=== PATIENT | female | born 1970 | race Caucasian/White ===

== ENCOUNTER 2016-05-06 06:18 | Day surgery (SDC) | payer OTHER ==
[2016-04-28 16:07] VITALS: BMI 21.7
[2016-05-06 06:33] VITALS: RESP 16; TEMP 98.1
[2016-05-06] MEDS ORDERED: LIDOCAINE 1% 20 ML VIAL (10MG/ML) FOR IV START SQ ONE (06:44)
[2016-05-06] MEDS ORDERED: LACTATED RINGERS 1,000 ML IV ONE (06:44)
[2016-05-06] MEDS ORDERED: MIDAZOLAM 2 MG/2 ML VIAL ONE (07:25)
[2016-05-06] MEDS ORDERED: BUPIVACAINE (PF) 0.5% 30 ML VIAL ONE (07:25)
[2016-05-06] MEDS ORDERED: fentaNYL (PF) 50 MCG/ML 2 ML AMP ONE (07:25)
[2016-05-06] MEDS ORDERED: TRIAMCINOLONE ACETONIDE 40 MG/ML 1 ML VIAL ONE (07:25)
[2016-05-06] MEDS ORDERED: LACTATED RINGERS 1,000 ML IV SCH (07:45)
[2016-05-06] MEDS ORDERED: IV FLUID CONTINUATION 1,000 ML IV ONE (07:51)
[2016-05-06 07:56] VITALS: PULSE 63
--- NOTE | 2016-05-06 08:06 | FL ---
EXAMINATION TYPE: FL guided pain mgmt statistic DATE OF EXAM: 05/06/2016 7:53 AM HISTORY: Pain 8 sec fl time used during lumbar facets 5 images scanned into pacs doctor mata
[2016-05-06 08:11] VITALS: BP 113/72
--- NOTE | 2016-05-06 08:49 | P.PCN ---
Date of Procedure: 05/06/16 Anesthesia: MAC Surgeon: Adam Armstrong Pathology: none sent Condition: stable Disposition: PACU Description of Procedure: PREOPERATIVE DIAGNOSIS: L3-L4, L4-L5, and L5-S1 spondylosis without myelopathy and facet arthropathy. POSTOPERATIVE DIAGNOSIS: L3-L4, L4-L5, and L5-S1 spondylosis without myelopathy and facet arthropathy. PROCEDURE DESCRIPTION: Patient presents for bilateral L3, L4 and L5 diagnostic medial branch blocks under fluoroscopic guidance. The procedure is performed using fluoroscopic guidance during needle placement to assure proper position and maximize safety. ANESTHESIA: Local with 1% lidocaine. Conscious sedation with Versed/fentanyl. EBL: Minimal PROCEDURE INDICATION: Patient with lumbar facet arthropathy signs and symptoms, here for diagnostic medial branch block #2 after 70% relief for 3-4 hours from MBB #1. Pt does not take any blood thinning medications. PROCEDURE DESCRIPTION: The patient was seen and identified in the preoperative area. Risks, benefits, complications, and alternatives were discussed with the patient (including but not limited to incomplete pain relief, bleeding, infection, nerve damage, and allergies to medications), the patient agreed to proceed with the procedure and signed the consent after all questions were answered. Patient was taken to the OR and time out was completed to verify proper patient, position, laterality of pain, and allergies. Pt was placed in the prone position and a pillow was placed under the abdomen to reduce lumbar lordosis. The lumbosacral area was prepped and draped in the usual sterile fashion. Using oblique fluoroscopy, the eye of the "Jimi dog" of right L4 vertebral body, which corresponds to the path of the medial branch originating from the level above, which is L3 in this case, was identified. Subsequently, a 22-gauge 3.5-inch spinal needle was inserted under fluoroscopic guidance toward the eye of the "Jimi dog" of the right L4 vertebral body, corresponding to the junction of the superior articular process and the transverse process of the pedicle of the same level. After needle tip confirmation on lateral view and after negative aspiration for CSF and blood and without paresthesias, 1 mL of a 6 ml solution of 0.5% preservative-free bupivacaine and 40 mg Kenalog was injected. Subsequently the needle was withdrawn intact and the same procedure was repeated for the right L4, right L5, left L3, left L4, and left L5 medial branches which together with right L3 medial branch correspond to the sensory innervation of the bilateral L3-L4, L4-L5, and L5-S1 facet joints. Needle was withdrawn intact after each injection. At the end of the procedure, the skin was cleansed and bandages were applied. COMPLICATIONS: None. DISPOSITION/PLAN: The patient taken to the recovery area after the procedure in a stable condition for observation. Patient was reexamined prior to discharge and there were no issues. Patient was discharged home, accompanied by an adult, after meeting discharged criteria. Discharge instructions were give to the patient by the staff. Patient was specifically instructed not to drive today and to rest for the rest of the day.
== END 2016-05-06 08:30 | disposition home or self-care (01) ==
LOC: ORPAIN 06:18
PROVIDERS: ATTEND Anesthesiology
DX: M46.86 Other specified inflammatory spondylopathies, lumbar region (principal); M47.817 Spondylosis without myelopathy or radiculopathy, lumbosacral region; M47.816 Spondylosis without myelopathy or radiculopathy, lumbar region; I10 Essential (primary) hypertension; F32.9 Major depressive disorder, single episode, unspecified; K21.9 Gastro-esophageal reflux disease without esophagitis; Z88.6 Allergy status to analgesic agent; Z88.5 Allergy status to narcotic agent; Z88.8 Allergy status to other drugs, medicaments and biological substances; Z79.899 Other long term (current) drug therapy
CPT/HCPCS: 64493; 64494; 64495; J2250; J3301; J3010

== ENCOUNTER → 2016-06-21 | Outpatient (CLI) | payer OTHER ==
[2016-06-21 14:53] VITALS: BP 111/59; PULSE 65; RESP 16; TEMP 98.3
--- NOTE | 2016-06-21 15:45 | P.PN ---
Subjective This is follow-up visit for this patient with a history of severe and chronic neck pain ,and low back pain secondary to lumbar degenerative disc disease lumbar facet arthropathy, and cervical spinal stenosis, cervical spondylosis we have done interventional pain management injection, diagnostic medial branch blocks lumbar area x2 and she had no benefit from the diagnostic medial branch block, for this reason we will not proceed with the radiofrequency ablation of the medial branch lumbar area, currently she is reporting that she is complaining of severe neck pain with radiation to the upper extremity, associated with numbness and tingling sensation, and occasional weakness in her upper extremities bilaterally, and she is complaining of generalized neck pain, and is currently on pain medication 1- Lyrica 50 mg every morning and 50 mg daily , pm and 100 mg every at bedtime 2- Ultram 50 MG EVERY 8 HOURS 3-Motrin 600 mg every 8 hours , Patient denies any side effects of the medication, denies excessive drowsiness or sleepiness, denies suicidal ideation, he denies any change in the bowel movement or urination, no fever or night sweats ,and reports that the current pain medication is NOT helping To control the pain and improve activity of daily living Physical Examinations : 1-Constitutiona : Cooperative , not in acute distress . 2-HEENT : nech ; supple , no Lymphadenopathy , no Thyromegaly , normal thyroid size . eyes : no ptosis , no icterus, no photophobia . ENT : normal of hearing , normal oropharynx , no Thrush . 3- Respiratory : Chest clear to auscultations Bilaterally , no wheezing , no Rhonchi . 4- Cardiovascular : regular rate and rhythem , S1 , S2 , no S3 , no S4. 5- Gastrointestinal : abdomen soft no tenderness , bowel sounds positive all four quadrents , no organomegally . 6- Genitourinary : Defferred . 7- neurologic : Cranial nerve II to XII intact , no focal neurological deffecit . 8-psychatric : alert , oriented X 3 , appropriate affect , intact judgment and insight . 9-Lymphatic : no Lymphadenopathy . 10- musculoskeltal : exams of the cervical spine = motor strength normal bilateral upper extremities facet loading test cervical area positive. Multiple trigger point identified in the cervical paravertebral muscles exams of the Lumber spine = motor strength lower extremities ,thigh and legs .5/5 deep tendon reflexes : normal Knee Jerk , normal ankle Jerk . lumber facet Loading Test positive strait leg raising test positive at 30 degree , RT ,LT , Fabere test positive RT and positive LT . Range of motion: Range of motion in flexion of the lumbar spine 30 degrees Range of motion range of motion of extension of the lumbar spine 10 Sever tenderness over the Sacroiliac joint on the Right , and Left side Severe tenderness over the right trochanteric bursa Diagnostic study= MRI of the lumbar spine with moderate facet hypertrophy L4 5/L5-S1 MRI of the cervical spine C4 5 , C5 6 moderate canal stenosis And multilevel degenerative disc disease and facet hypertrophy in the cervical spine Assessment and plan = - Chronic low back pain secondary to lumbar degenerative disc disease , lumbar spondylosis with facet arthropathy without myelopathy , Cervical radiculopathy, cervical spinal stenosis, cervical spondylosis Fibromyalgia , - diagnoses, prognosis, and treatment options including but not limited to physical therapy, surgical interventions, interventional therapies , and medication management including narcotics and adjuvant medication were discussed with the patient and all The questions answered. The patient had diagnostic medial branch block lumbar area and it was negative for any improvement in her low back pain for this reason she is not a Good candidate to have the radiofrequency of the medial branch lumbar area. Patient could benefit from cervical epidural steroid injection, which will be done under fluoroscopy guidance at the earliest convenient for the patient, And the patient could benefit from trigger point injection which can be done at the same time and with a cervical epidural steroid injection. Also patient will benefit from increasing the Lyrica to 100 mg 3 times a day, and will start patient on baclofen 10 mg twice a day, Discontinue Motrin , and start patient on Mobic 7.5 mg daily And the patient continued to have pain after the injection and will consider referring her to spine surgeon for evaluation for possible surgical intervention Objective - Vital Signs Vital signs: Vital Signs Temp 98.3 F 06/21/16 14:48 Pulse 65 06/21/16 14:48 Resp 16 06/21/16 14:48 BP 111/59 06/21/16 14:48 Pulse Ox 100 06/21/16 14:48 Intake & Output 06/20/16 06/21/16 06/21/16 18:59 06:59 18:59 Weight 60.328 kg
== END | disposition home or self-care (01) ==
LOC: PNWHC3 14:36
PROVIDERS: ATTEND Specialist
DX: M51.36 Other intervertebral disc degeneration, lumbar region (principal); M47.816 Spondylosis without myelopathy or radiculopathy, lumbar region; M46.96 Unspecified inflammatory spondylopathy, lumbar region; M48.02 Spinal stenosis, cervical region; Z79.899 Other long term (current) drug therapy; M54.12 Radiculopathy, cervical region; M47.892 Other spondylosis, cervical region; M79.7 Fibromyalgia
CPT/HCPCS: 99211

== ENCOUNTER → 2016-08-16 | Outpatient (CLI) | payer OTHER ==
[2016-08-16 14:22] VITALS: BP 110/71; PULSE 65; RESP 16; TEMP 98.5
--- NOTE | 2016-08-16 14:45 | P.PN ---
Progress Note - Text Patient returns for followup for chronic neck and low back pain with radiation to upper extremities. Patient recently underwent cervical epidural steroid injection and cervical TPI, during which she had seizure like activity and was nearly intubated. Patient was sent to [facility] for possible neurosurgical intervention, but this was not done and patient was discharged home after rehab. Patient now returns to our clinic for follow-up, and has been taken off Lyrica by her neurologist and has not had tramadol for some time , and is now taking Cymbalta 30 mg daily. She is currently taking baclofen which helps with her pain somewhat. Patient denies adverse drug effects from medications. Today, pt denies new-onset weakness, bowel/bladder incontinence, or any other signs or symptoms of cauda equina syndrome. There are no signs of acute intoxication, and no indications of medication diversion or overuse. In addition to above, 13-point review of systems is also negative for chest pain , shortness of breath, changes in vision, changes in hearing, new onset weakness , abdominal pain, diarrhea, extreme fatigue, malaise, fever, skin changes, homicidal or suicidal ideation, or bowel or bladder incontinence. Vital Signs: Reviewed in EMR Gen: WDWN, AAOx3, NAD HEENT: NCAT, EOMI, hearing grossly normal Pulm: resp unlabored Abd: soft, NT, ND Neck: supple, trachea midline; TTP right cervical paravertebral area Upper extremity: decreased manager project strength RUE 4/5 as opposed to LUE 5/5 Lower extremity: decreased strength RLE 4/5 dorsiflexion/plantarflexion as opposed to LLE 5/5 dorsi/plantarflexion Neuro: CN II-XII grossly intact, patellar reflex 1+ RLE, 2+ LLE Imaging: Reviewed in EMR Assessment: 1. cervical radiculopathy s/p CHRISTINA + TPI with possible seizure-like activity and weakness 2. fibromyalgia 3. chronic pain syndrome Plan: 1. Explanation: Opioid and psychological risk scores were reviewed. Diagnoses , prognoses, and multiple treatment options including but not limited to physical therapy, interventional therapies, adjuvant medical therapies, narcotic medication therapies, and surgery were discussed with the patient and all questions were answered to the patient's satisfaction. 2. Opioid agreement: Patient has previously signed narcotic agreement, and was orally counseled to not overuse, abuse, divert, or cell medications, and to take them as prescribed by only 1 healthcare provider. The patient was also counseled to store opioid medications in a safe and preferably locked location. Patient was also counseled against driving or operating heavy equipment while using narcotic medications and also to not use alcohol or any illicit or recreational drugs. The patient verbalized understanding that lack of compliance with any of the above and likely result in failure to renew narcotic prescriptions, possible discharge from the clinic, and possible legal ramifications thereafter if indicated. 3. Counseling: The patient was counseled extensively on SMOKING CESSATION, BODY MASS INDEX, EXERCISE. Specifically, the patient was instructed regarding the importance of smoking cessation, obesity, and exercise in the context of both chronic pain and overall health. 4. Procedures: none 5. Consultations: None 6. Investigations: None 7. Medications: Percocet 5/325 #15 with no refills (patient hesitant about taking opioids, will only try small dose for one month); refill baclofen 10 TID #90 with two refills 8. Disposition: f/u for re-eval in 4 weeks; as patient is not a candidate for further injections and told not to do physical therapy, I advised her to try yoga and acupuncture; she will research these modalities further. PQRS measures: 1-Patient's medications are documented in the chart. 2-Tobacco use is negative 3-Patient has not had a pneumococcal vaccine. 4-Advanced care planning discussed, patient unable to give. 5-Opioid contract signed with the patient. 6-Pain positive, follow-up visit or procedure scheduled 7-Patient's blood pressure measured and documented, and patient will follow up with the primary care due to hypertension. 8-Patient's weight was measured, and body mass index WNL. 9-Patient WAS NOT identified as an unhealthy alcohol user.
== END | disposition home or self-care (01) ==
LOC: PNWHC3 14:00
PROVIDERS: ATTEND Anesthesiology
DX: M54.12 Radiculopathy, cervical region (principal); M79.7 Fibromyalgia; G89.4 Chronic pain syndrome; Z79.52 Long term (current) use of systemic steroids
CPT/HCPCS: 99211

== ENCOUNTER → 2016-09-13 | Outpatient (CLI) | payer OTHER ==
[2016-09-13 12:18] VITALS: BP 115/70; PULSE 57; RESP 16; TEMP 98.2
--- NOTE | 2016-09-14 15:19 | P.CONS ---
History of Present Illness - Reason for Consult Consult date: 09/13/16 - History of Present Illness This is follow visit for this 46 years old female with a chronic history of severe neck pain, and severe low back pain, diagnosed with cervical spinal stenosis cervical degenerative disc disease, fibromyalgia, and severe low back pain secondary to lumbar spondylosis and lumbar degenerative disc disease, she had seizure-like activity, after the procedure done 07/22/2016 (Trigger points injection cervical area ,and cervical epidural steroid injection), patient currently taking baclofen 10 mg 3 times a day, and Aleve 220 twice a day, Cymbalta 30 mg twice a day, and she stopped taking Percocet , as she is concerned about addiction, and she stopped taking tramadol as per recommendation of her neurologist because of possible seizure,, patient continues to have severe neck pain and headache, denies any side effect of the medication , she denies any excessive drowsiness or sleepiness and she denies any motor or sensory deficit, described intensity of the pain as 6-7/10 increased with any activity to a 9/10, done diagnostic medial branch block lumbar area patient had no benefit from the medial branch block for this reason we did not proceed with the radiofrequency ablation of the medial branch, I have done 1 cervical epidural steroid injection and trigger point injection and after the procedure she had, seizure-like activity for this reason patient concerned about proceeding with any interventional pain management procedure, she is able to ambulate and she uses her upper and lower extremity without difficulty but she has severe pain, she was referred to [facility] and they recommended no surgical interventions, even though the MRI of the cervical spine showed moderate to severe spinal stenosis Past Medical History Past Medical History: Fibromyalgia, Musculoskeletal Disorder Additional Past Medical History / Comment(s): migraines, IBS, past hx irregular heartrate, constipation - uses enemas frequently., states she wakes up at night coughing and choking- 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 History of Any Multi-Drug Resistant Organisms: None Reported Past Surgical History: Bladder Surgery, Hysterectomy Additional Past Surgical History / Comment(s): Cervical pain injections, D&C, loop recorder/later removed, EGD/colonoscopy Past Anesthesia/Blood Transfusion Reactions: Previous Problems w/ Anesthesia, Motion Sickness Additional Past Anesthesia/Blood Transfusion Reaction / Comm: "wake up coughing ", Past Psychological History: Anxiety Additional Psychological History / Comment(s): Pt resides with her boyfriend. She uses no assistive device. She drives. If she is having a "bad" day, her boyfriend helps her out. Smoking Status: Never smoker Past Alcohol Use History: None Reported Past Drug Use History: None Reported - Past Family History Mother Family Medical History: Cancer, Hypertension Additional Family Medical History / Comment(s): Mother has had skin cancer. She possibly has lupus. Father Family Medical History: Hypertension Medications and Allergies Home Medications Medication Instructions Recorded Confirmed Type Acyclovir 400 mg PO BID 09/24/15 09/13/16 History Topiramate [Topamax] 75 mg PO BID 09/24/15 09/13/16 History traMADol HCL [Ultram] 50 mg PO Q6H PRN 01/12/16 09/13/16 History Albuterol Inhaler [Ventolin Hfa 2 puff INHALATION RT-Q6H PRN 02/17/16 09/13/16 History Inhaler] Ondansetron [Zofran ODT] 4 mg PO Q4H PRN 02/17/16 09/13/16 History hydrOXYzine PAMOATE [Vistaril] 25 - 50 mg PO Q12HR PRN 04/29/16 09/13/16 History Cyanocobalamin (Vitamin B-12) 2,500 mcg PO DAILY 06/21/16 09/13/16 History [Vitamin B-12] Rizatriptan Odt [Maxalt ROLLER PRESSER OPERATOR] 10 mg SL BID PRN 06/21/16 09/13/16 History DULoxetine HCL [Cymbalta] 30 mg PO BID 07/20/16 09/13/16 History Ranitidine HCl 300 mg PO DAILY 07/20/16 09/13/16 History Cholecalciferol [Vitamin D3] 1,000 unit PO DAILY 08/16/16 09/13/16 History Ibuprofen [Motrin] 600 mg PO Q8HR PRN 08/16/16 09/13/16 History Naproxen Sodium [Aleve] 220 mg PO DIRECTED PRN 09/13/16 09/13/16 History Allergies Allergy/AdvReac Type Severity Reaction Status Date / Time adhesive tape Allergy burn jane Verified 09/13/16 12:00 on skin hydrocodone bitartrate AdvReac Itching Verified 09/13/16 12:00 [From Vicodin] Physical Exam Physical Examinations : 1-Constitutiona : Cooperative , not in acute distress . 2-HEENT : nech ; supple , no Lymphadenopathy , normal thyroid size . eyes : no ptosis , no icterus, no photophobia . ENT : normal of hearing , normal oropharynx , no Thrush . 3- Respiratory : Chest clear to auscultations Bilaterally , no wheezing , no Rhonchi . 4- Cardiovascular : regular rate and rhythem , S1 , S2 , no S3 , no S4. 5- Gastrointestinal : abdomen soft no tenderness , bowel sounds positive all four quadrents , no organomegally . 6- Genitourinary : Defferred . 7- neurologic : Cranial nerve II to XII intact , no focal neurological deffecit . 8-psychatric : alert , oriented X 3 , appropriate affect , intact judgment and insight . 9-Lymphatic : no Lymphadenopathy . 10- musculoskeltal : cervical spine = motor stregnth in the deltoid and biceps, 5/5 motor stregnth biceps and the wrist extensors 5/5 . motor stregnth in the triceps muscle .5/5 Normal sensation in the upper extremities Positive cervical facet loading test . Lumber spine = normal moter stegnth lower extremities ,thigh and legs .5/5 positive lumber facet Loading Test strait leg raising test positive at 30 degree , RT ,LT , Fabere test positive RT and positive LT . normal sensation in the lower extremities multiple trigger point identified in the cervical paravertebral muscles and lumbar paravertebral muscles , . Results Labs: MRI of the cervical spine done 07/23/2016 revealed moderate to severe spinal stenosis multilevel cervical bulging disc disease at multilevels cervical degenerative disc disease Assessment and Plan Plan: Assessment and plan= severe neck pain and low back pain secondary to cervical spinal stenosis cervical degenerative disc disease and cervical bulging disc disease, and patient had myofascial pain syndrome and cervical area, she had some complication of the trigger point injections, she'll doesn't wish to continue interventional pain management, Low back pain secondary to lumbar spondylosis and lumbar degenerative disc disease Patient concerned about the opiate addiction she doesn't want to take any opioid , and the neurologist recommended to stop tramadol because of possibility of seizure like activity Recommend continue Aleve to 220 mg twice a day, continue Cymbalta 30 mg twice a day, patient could benefit from Topamax 25 mg twice a day which will help to improve her neck pain and also help her headache, description refill for 2 months was given and patient will follow up with the pain clinic in 2 months Time with Patient: Less than 30
== END | disposition home or self-care (01) ==
LOC: PNWHC3 11:33
PROVIDERS: ATTEND Specialist
DX: M48.02 Spinal stenosis, cervical region (principal); M50.20 Other cervical disc displacement, unspecified cervical region; M50.30 Other cervical disc degeneration, unspecified cervical region; M51.36 Other intervertebral disc degeneration, lumbar region; M47.816 Spondylosis without myelopathy or radiculopathy, lumbar region; M79.7 Fibromyalgia; F41.9 Anxiety disorder, unspecified; Z79.899 Other long term (current) drug therapy; Z91.09 Other allergy status, other than to drugs and biological substances; Z88.5 Allergy status to narcotic agent
CPT/HCPCS: 99211

== ENCOUNTER → 2016-11-08 | Outpatient (CLI) | payer OTHER ==
[2016-11-08 12:27] VITALS: BP 112/73; PULSE 50; RESP 16; TEMP 97.8
--- NOTE | 2016-11-08 13:00 | P.PN ---
Progress Note - Text Patient returns for followup for chronic neck and low back pain with radiation to upper extremities. In July, patient recently underwent cervical epidural steroid injection and cervical TPI, during which she had seizure like activity and was nearly intubated. Patient was sent to [facility] for possible neurosurgical intervention, but this was not done and patient was discharged home after rehab. Patient returns for follow-up after Dr. Collins started Topamax at last visit, which was increased by her neurologist at last visit. She is complaining of pain in her neck, arm, and right-sided fingers, the last of which seems to worsen with the weather. Patient notes that she was diagnosed with a smooth muscle disease but was never told what kind, but she was sent to a data center project manager who noted that there was nothing for her that that physician could do. She is currently taking baclofen which helps with her pain somewhat. Patient denies adverse drug effects from medications. Today, pt denies new-onset weakness, bowel/bladder incontinence, or any other signs or symptoms of cauda equina syndrome. There are no signs of acute intoxication, and no indications of medication diversion or overuse. In addition to above, 13-point review of systems is also negative for chest pain , shortness of breath, changes in vision, changes in hearing, new onset weakness , abdominal pain, diarrhea, extreme fatigue, malaise, fever, skin changes, homicidal or suicidal ideation, or bowel or bladder incontinence. Vital Signs: Reviewed in EMR Gen: WDWN, AAOx3, NAD HEENT: NCAT, EOMI, hearing grossly normal Pulm: resp unlabored Abd: soft, NT, ND Neck: supple, trachea midline; TTP right cervical paravertebral area Upper extremity: bilateral UE 5/5 strength Lower extremity: decreased strength RLE 4/5 dorsiflexion/plantarflexion as opposed to LLE 5/5 dorsi/plantarflexion Neuro: CN II-XII grossly intact, patellar reflex 1+ RLE, 2+ LLE Imaging: Reviewed in EMR Assessment: 1. cervical radiculopathy s/p CHRISTINA + TPI with possible seizure-like activity and weakness 2. fibromyalgia 3. chronic pain syndrome Plan: 1. Explanation: Opioid and psychological risk scores were reviewed. Diagnoses , prognoses, and multiple treatment options including but not limited to physical therapy, interventional therapies, adjuvant medical therapies, narcotic medication therapies, and surgery were discussed with the patient and all questions were answered to the patient's satisfaction. 2. Opioid agreement: Patient has previously signed narcotic agreement, and was orally counseled to not overuse, abuse, divert, or cell medications, and to take them as prescribed by only 1 healthcare provider. The patient was also counseled to store opioid medications in a safe and preferably locked location. Patient was also counseled against driving or operating heavy equipment while using narcotic medications and also to not use alcohol or any illicit or recreational drugs. The patient verbalized understanding that lack of compliance with any of the above and likely result in failure to renew narcotic prescriptions, possible discharge from the clinic, and possible legal ramifications thereafter if indicated. 3. Counseling: The patient was counseled extensively on BODY MASS INDEX, EXERCISE. Specifically, the patient was instructed regarding the importance of weight control and exercise in the context of both chronic pain and overall health. 4. Procedures: none 5. Consultations: None 6. Investigations: None 7. Medications: Refill baclofen 10 TID #90 with two refills 8. Disposition: f/u for re-eval in 8 weeks; patient will bring results of all blood work and diagnostic testing to next visit for review; patient may need to see a neuromuscular disease specialist. If this is the case, we can refer her to Dr. Elkin Bethea at [facility], in [place]. PQRS measures: 1-Patient's medications are documented in the chart. 2-Tobacco use is negative 3-Patient has not had a pneumococcal vaccine. 4-Advanced care planning discussed, patient unable to give. 5-Opioid contract signed with the patient. 6-Pain positive, follow-up visit or procedure scheduled 7-Patient's blood pressure measured and documented, and patient will follow up with the primary care due to hypertension. 8-Patient's weight was measured, and body mass index WNL. 9-Patient WAS NOT identified as an unhealthy alcohol user.
== END | disposition home or self-care (01) ==
LOC: PNWHC3 11:48
PROVIDERS: ATTEND Anesthesiology
DX: M54.12 Radiculopathy, cervical region (principal); M79.7 Fibromyalgia; G89.4 Chronic pain syndrome; M48.03 Spinal stenosis, cervicothoracic region; I10 Essential (primary) hypertension; Z79.899 Other long term (current) drug therapy
CPT/HCPCS: 99211

== ENCOUNTER → 2017-01-13 | Outpatient (CLI) | payer OTHER ==
--- NOTE | 2017-01-13 12:48 | P.PN ---
Progress Note - Text Patient returns for followup for chronic neck and low back pain with radiation to upper extremities. In July, patient underwent cervical epidural steroid injection and cervical TPI, during which she had seizure like activity and was nearly intubated. Patient was sent to [facility] for possible neurosurgical intervention, but this was not done and patient was discharged home after rehab. Patient returns for follow-up after Dr. Collins started Topamax at last visit, which was increased by her neurologist at last visit. She is complaining of pain in her neck, arm, and right-sided fingers, the last of which seems to worsen with the weather. Patient notes that she was diagnosed with a smooth muscle disease but was never told what kind, but she was sent to a internal grinder set up operator who noted that there was nothing for her that that physician could do. She has brought back labwork today demonstrating that she is positive for spinal muscular atrophy antibodies. She is currently taking baclofen which has only helped with her pain minimally and she has also had no relief from tramadol and is scared to try any stronger opioids. Patient denies adverse drug effects from medications. Today, pt denies new-onset weakness, bowel/bladder incontinence, or any other signs or symptoms of cauda equina syndrome. There are no signs of acute intoxication, and no indications of medication diversion or overuse. In addition to above, 13-point review of systems is also negative for chest pain , shortness of breath, changes in vision, changes in hearing, new onset weakness , abdominal pain, diarrhea, extreme fatigue, malaise, fever, skin changes, homicidal or suicidal ideation, or bowel or bladder incontinence. Vital Signs: Reviewed in EMR Gen: WDWN, AAOx3, NAD HEENT: NCAT, EOMI, hearing grossly normal Pulm: resp unlabored Abd: soft, NT, ND Neck: supple, trachea midline; TTP right cervical paravertebral area Spine: TTP thoracic and lumbar paravertebral areas grossly Upper extremity: bilateral UE 5/5 strength Lower extremity: decreased strength RLE 4/5 dorsiflexion/plantarflexion as opposed to LLE 5/5 dorsi/plantarflexion Neuro: CN II-XII grossly intact, reduced sensation to pinprick RLE, patellar reflex 1+ RLE, 2+ LLE; straight leg raise negative Imaging: Reviewed in EMR Assessment: 1. cervical disc herniation s/p CHRISTINA + TPI with possible seizure-like activity and weakness 2. fibromyalgia 3. spinal muscular atrophy 4. chronic pain syndrome Plan: 1. Explanation: Opioid and psychological risk scores were reviewed. Diagnoses , prognoses, and multiple treatment options including but not limited to physical therapy, interventional therapies, adjuvant medical therapies, narcotic medication therapies, and surgery were discussed with the patient and all questions were answered to the patient's satisfaction. 2. Opioid agreement: Patient has previously signed narcotic agreement, and was orally counseled to not overuse, abuse, divert, or cell medications, and to take them as prescribed by only 1 healthcare provider. The patient was also counseled to store opioid medications in a safe and preferably locked location. Patient was also counseled against driving or operating heavy equipment while using narcotic medications and also to not use alcohol or any illicit or recreational drugs. The patient verbalized understanding that lack of compliance with any of the above and likely result in failure to renew narcotic prescriptions, possible discharge from the clinic, and possible legal ramifications thereafter if indicated. 3. Counseling: The patient was counseled extensively on BODY MASS INDEX, EXERCISE. Specifically, the patient was instructed regarding the importance of weight control and exercise in the context of both chronic pain and overall health. 4. Procedures: none 5. Consultations: None 6. Investigations: None 7. Medications: Refill baclofen 10 TID #90 with two refills 8. Disposition: The patient is not a good candidate for any procedures given her previous poor experience and does not want any opioid pain medications and has had limited relief from muscle relaxant medications. I will refer her to Dr. Elkin Bethea, a neuromuscular disease specialist at [facility], for subspecialty management of her SMA. She will follow up with our pain clinic as needed. PQRS measures: 1-Patient's medications are documented in the chart. 2-Tobacco use is negative 3-Patient has not had a pneumococcal vaccine. 4-Advanced care planning discussed, patient unable to give. 5-Opioid contract signed with the patient. 6-Pain positive, follow-up visit or procedure scheduled 7-Patient's blood pressure measured and documented, and patient will follow up with the primary care due to hypertension. 8-Patient's weight was measured, and body mass index WNL. 9-Patient WAS NOT identified as an unhealthy alcohol user.
[2017-01-13 13:04] VITALS: PULSE 62; RESP 16
== END | disposition home or self-care (01) ==
LOC: PNWHC3 11:46
PROVIDERS: ATTEND Anesthesiology
DX: M50.20 Other cervical disc displacement, unspecified cervical region (principal); M79.7 Fibromyalgia; G12.9 Spinal muscular atrophy, unspecified; G89.4 Chronic pain syndrome; Z79.899 Other long term (current) drug therapy
CPT/HCPCS: 99211

== ENCOUNTER → 2017-05-16 | Outpatient (CLI) | payer OTHER ==
--- NOTE | 2017-05-16 12:06 | US ---
EXAMINATION TYPE: US MSK bilateral wrists for carpal tunnel syndrome. DATE OF EXAM: 05/16/2017 COMPARISON: NONE CLINICAL HISTORY: 47-year-old female G56.03 Carpal Tunnel Syndrome bilateral upper limb. Persistent t ingling in hands and fingers. Carpal tunnel surgery in 2016. Assess median nerve size. TECHNIQUE: Multiple sonographic images of the median nerve at the wrist were obtained. Dynamic maneuv ers utilizing pinch flex to assess movement of the median nerve. FINDINGS: Right: At the wrist, the median nerve retains its normal echogenic appearance and fascicular architecture. Proximal to the carpal tunnel: 7 sq mm. At the carpal tunnel: 9 sq mm. With dynamic maneuvers, there is no significant movement of the nerve between the radial and ulnar bu rsae. Left: At the wrist, the median nerve retains is normal echogenic appearance and fascicular architecture. Proximal to the carpal tunnel: 9 sq mm. At the carpal tunnel: 10 sq mm. With dynamic maneuvers, as seen on the contralateral side, there is no significant movement of the ne rve between the radial and ulnar-sided bursae. IMPRESSION: 1. Normal sonographic appearance of the median nerves. No abnormal thickening of the median nerves at the level of the carpal tunnel. 2. However, there is limited movement of both median nerves during dynamic maneuvers. Uncertain if th is is secondary to some scarring in the soft tissues around the nerves from prior surgery.
== END | disposition home or self-care (01) ==
LOC: RADUSWWP 09:23
PROVIDERS: ATTEND Psychiatry & Neurology Neurology
DX: G56.03 Carpal tunnel syndrome, bilateral upper limbs (principal)

== ENCOUNTER → 2017-05-19 | Outpatient (CLI) | payer OTHER ==
--- NOTE | 2017-05-19 12:58 | MR ---
EXAMINATION TYPE: MR cervical spine wo con DATE OF EXAM: 05/19/2017 COMPARISON: 07/23/2016 HISTORY: Patient having worsening cervical pain and paresthesia of hands. TECHNIQUE: Multiplanar, multisequence images of the cervical spine were acquired. FINDINGS: Alignment anatomic. No compression deformities. No definite abnormal signal within the visualized spi nal cord. Vertebral body hemangioma of T2 incidentally noted. There is multilevel degenerative disc d isease with severe changes at C5-6 and C6-C7. C2-C3: No canal stenosis, disc herniation or foraminal encroachment. Spinal canal widely patent.. C3-C4: Diffuse disc bulge. An moderate right neuroforaminal stenosis. Uncovertebral joint hypertrophy is noted. Mild central stenosis and cord flattening. C4-C5: Diffuse disc bulge with mild central stenosis. Bilateral mild foraminal encroachment greater o n the right with evidence of uncovertebral joint hypertrophy. C5-C6: Diffuse disc bulge with moderate to severe central stenosis. Moderate cord flattening seen. Bi lateral right worse than left and severe neuroforaminal stenosis. Uncovertebral joint hypertrophy not ed from the right which contributes to severe right-sided foraminal encroachment. C6-C7: Diffuse disc bulge with left paracentral component. Severe left neuroforaminal stenosis. Moder ate to severe central stenosis and moderate cord flattening. Disc bulging or broad-based protrusion a buts the anterior margin of the spinal cord. C7-T1: Unremarkable. No significant disc disease. No stenosis. IMPRESSION: Stable multilevel degenerative changes of the cervical spine from C2-C3 through C6-C7. The most signi ficant disease is at C5/C6 and C6/C7 with moderate to severe central stenosis at both levels. Bilater al right worse than left severe neuroforaminal stenosis seen at C5/C6. Severe left neuroforaminal kurt nosis seen at C6/C7.
== END | disposition home or self-care (01) ==
LOC: RADMRIMAIN 12:06
PROVIDERS: ATTEND Psychiatry & Neurology Neurology
DX: M48.02 Spinal stenosis, cervical region (principal); M99.71 Connective tissue and disc stenosis of intervertebral foramina of cervical region; M47.812 Spondylosis without myelopathy or radiculopathy, cervical region
CPT/HCPCS: 72141

== ENCOUNTER → 2017-06-27 | Outpatient (CLI) | payer OTHER ==
--- NOTE | 2017-06-27 13:01 | EST ---
EXERCISE STRESS DATE OF SERVICE: 06/27/2017 AGE: 47 SEX: Female HT: 5'2" WT: 130 pounds PROTOCOL: Elmo. STAGE: II DURATION OF EXERCISE: 6 minutes 32 seconds HEART RATE REST: 72 BLOOD PRESSURE REST: 126/89 MAXIMUM HEART RATE ACHIEVED: 142 MAXIMUM BLOOD PRESSURE: 155/85 85% MPHR: 147 100% MPHR: 173 METS: 7.9 INDICATIONS: CLINICAL INFORMATION: Baseline rhythm is sinus mechanism, rate of 72, normal axis, intervals. Normal electrocardiogram. Baseline blood pressure 126/89 mmHg. The patient exercised on Elmo protocol for 6 minute 32 seconds, reaching a peak rate of 142 beats per minute, which is equal to 81% maximum predicted heart rate. Peak blood pressure 155/85 mmHg. Test was terminated secondary to fatigue. The patient had mild chest discomfort at peak exercise that improved in recovery. Electrocardiograph monitoring revealed revealed a 0.[address]-segment depression that improved in recovery. CONCLUSION: 1. Decreased exercise tolerance. 2. Mild chest discomfort during exercise. 3. Borderline electrocardiographic response to exercise with 0.[address]-segment depression. 4. If clinically indicated, an imaging stress test will be helpful to evaluate the etiology of chest discomfort. MMODL / IJN: [id number] /
== END ==
LOC: RADNMMAIN 09:40
PROVIDERS: ATTEND Specialist
DX: R07.89 Other chest pain (principal); I10 Essential (primary) hypertension; J45.30 Mild persistent asthma, uncomplicated; R06.09 Other forms of dyspnea
CPT/HCPCS: 93017

== ENCOUNTER → 2017-06-27 | Outpatient (CLI) | payer OTHER ==
[2017-06-27 09:48] LABS: HCT 38.4 % (34.0-46.0); HGB 12.8 gm/dL (11.4-16.0); MCH 32.6 pg (25.0-35.0); MCHC 33.2 g/dL (31.0-37.0); MCV 98.2 fL (80.0-100.0); Mean Platelet Volume 7.4; Platelet Count 257 k/uL (150-450); RBC 3.92 m/uL (3.80-5.40); RDW 12.9 % (11.5-15.5); WBC 4.3 k/uL (3.8-10.6)
[2017-06-27 09:54] LABS: INR 1.1 (<1.2); Partial Thromboplastin Time 23.4 sec (22.0-30.0); Prothrombin Time 10.4 sec (9.0-12.0)
[2017-06-27 10:01] LABS: ALT 20 U/L (9-52); AST 16 U/L (14-36); Albumin 4.1 g/dL (3.5-5.0); Alkaline Phosphatase 65 U/L (38-126); Anion Gap 10 mmol/L; Blood Urea Nitrogen 7 mg/dL (7-17); Calcium 10.4 mg/dL (8.4-10.2); Carbon Dioxide 24 mmol/L (22-30); Chloride 107 mmol/L (98-107); Glucose 88 mg/dL (74-99); Potassium 3.8 mmol/L (3.5-5.1); Sodium 141 mmol/L (137-145); Total Bilirubin 0.8 mg/dL (0.2-1.3); Total Protein 6.8 g/dL (6.3-8.2)
--- NOTE | 2017-06-27 10:40 | XR ---
EXAMINATION TYPE: XR chest 2V DATE OF EXAM: 06/27/2017 COMPARISON: 04/12/2017 HISTORY: Presurgical evaluation TECHNIQUE: Frontal and lateral views of the chest are obtained. FINDINGS: There is no focal air space opacity, pleural effusion, or pneumothorax seen. The cardiac silhouette size is within normal limits. The osseous structures are intact. Minimal multilevel dege nerative changes of the thoracic spine are noted. IMPRESSION: No acute cardiopulmonary process.
== END | disposition home or self-care (01) ==
LOC: LABWHC1 09:02
PROVIDERS: ATTEND Neurological Surgery
DX: S13.141A Dislocation of C3/C4 cervical vertebrae, initial encounter (principal); S13.151A Dislocation of C4/C5 cervical vertebrae, initial encounter; S13.161A Dislocation of C5/C6 cervical vertebrae, initial encounter
CPT/HCPCS: 36415; 71046; 80053; 85027; 85610; 85730; 93005; 93017

== ENCOUNTER → 2017-09-10 | Outpatient (CLI) | payer OTHER ==
--- NOTE | 2017-09-10 07:49 | MR ---
EXAMINATION TYPE: MR cervical spine wo/w con DATE OF EXAM ORDERED: 09/10/2017 7:37 AM HISTORY: M54.12 Radiculopathy / Z98.1 Arthrodesis status. TECHNOLOGIST HISTORY AT TIME OF EXAM: Radiculopathy / Arthrodesis status IV CONTRAST: 6 of Gadavist COMPARISON: Previous study dated 05/19/2017. TECHNIQUE: Multiplanar, multiecho imaging of the cervical spine was obtained with and without the in travenous administration of 6 of Gadavist on a 1.5 bob magnet. FINDINGS: There has been a previous ACDF extending from C5 through C7. Prevertebral soft tissues are normal. Vertebral body height and alignment are maintained. Atlantoaxial relationships are normal. At C2-C3, no definite abnormality is seen. At C3-C4, there is right-sided intervertebral foraminal narrowing. At C4-C5, there is bilateral intervertebral foraminal narrowing, worse on the right than the left. Th ere is a mixed spondylitic bar present posteriorly deforming the thecal sac with cord contact but wit hout compression. At C5-C6, there is bilateral intervertebral foraminal narrowing, worse on the right than the left. Th ere is no significant compressive discopathy. At C6-C7, the intervertebral foramina are well maintained. There is a mild, mixed spondylitic bar pre sent posteriorly deforming the thecal sac without cord contact. The facets are unremarkable. The unco vertebral joints are obscured. At C7-T1, there is left-sided intervertebral foraminal narrowing. There is no significant compressive discopathy. The facets are unremarkable. There is mild uncovertebral joint disease. IMPRESSION: 1. POSTSURGICAL CHANGE. 2. MULTILEVEL INTERVERTEBRAL FORAMINAL NARROWING. 3. MIXED SPONDYLOTIC BARS, C4-5 AND C6-7 WITH SOME CORD CONTACT PRESENT AT C4-5.
== END | disposition home or self-care (01) ==
LOC: RADMRIMAIN 06:54
PROVIDERS: ATTEND Neurological Surgery
DX: M99.71 Connective tissue and disc stenosis of intervertebral foramina of cervical region (principal); M47.812 Spondylosis without myelopathy or radiculopathy, cervical region; Z98.1 Arthrodesis status
CPT/HCPCS: 72156; A9581

== ENCOUNTER → 2017-09-21 | Outpatient (CLI) | payer OTHER ==
--- NOTE | 2017-10-03 09:39 | MM ---
Reason for exam: screening (asymptomatic). Last mammogram was performed 2 years and 5 months ago. History: Patient is postmenopausal. Family history of breast cancer in paternal grandmother. Physical Findings: A clinical breast exam by your physician is recommended on an annual basis and results should be correlated with mammographic findings. MG 3D Screening Mammo W/Cad Bilateral CC and MLO view(s) were taken. Prior study comparison: April 22, 2015, mammogram, performed at [place]. The breast tissue is extremely dense which could obscure a lesion on mammography. No suspicious abnormality. No significant changes when compared with prior studies. ASSESSMENT: Negative, BI-RAD 1 RECOMMENDATION: Routine screening mammogram of both breasts in 1 year.
== END | disposition home or self-care (01) ==
LOC: RADMAMWWP 15:26
PROVIDERS: ATTEND Obstetrics & Gynecology
DX: Z12.31 Encounter for screening mammogram for malignant neoplasm of breast (principal)
CPT/HCPCS: 77063; 77067

== ENCOUNTER → 2018-01-30 | Outpatient (CLI) | payer OTHER ==
[2018-01-30 14:41] VITALS: BP 123/86; PULSE 72; RESP 16
--- NOTE | 2018-01-31 10:54 | P.PAINPG ---
Subjective Progress Note Date: 01/30/18 This is a follow-up visit for this 47 years old female with a chronic history of severe neck pain and headache, description pain was with cervical bulging disc disease, and cervical spinal stenosis, patient had the cervical fusion surgery done by , and patient was referred to [facility] pain clinic for right-sided sacroiliac joint steroid injection, patient complaining of severe low back pain mainly on the right side, with radiations to, the right lower extremity, she denies any motor or sensory deficit and she reported that the pain increases with any activity walking and bending, he denies any fever or night sweats, and she is currently on ultram , Lyrica, Motrin and Flexeril, she is getting prescription refills from her primary care Objective - Vital Signs Vital signs: Vital Signs Temp Pulse 72 01/30/18 14:33 Resp 16 01/30/18 14:33 BP 123/86 01/30/18 14:33 Pulse Ox 100 01/30/18 14:33 Intake & Output 01/30/18 01/31/18 01/31/18 18:59 06:59 18:59 Weight 66.678 kg - Exam Physical Examinations : 1-Constitutiona : Cooperative , not in acute distress . 2-HEENT : nech ; supple , no Lymphadenopathy , normal thyroid size . eyes : no ptosis , no icterus, no photophobia . ENT : normal of hearing , normal oropharynx , no Thrush . 3- Respiratory : Chest clear to auscultations Bilaterally , no wheezing , no Rhonchi . 4- Cardiovascular : regular rate and rhythem , S1 , S2 , no S3 , no S4. 5- Gastrointestinal : abdomen soft no tenderness , bowel sounds , no organomegally . 6- Genitourinary : Defferred . 7- neurologic : Cranial nerve II to XII intact , no focal neurological deffecit . 8-psychatric : alert , oriented X 3 , appropriate affect , intact judgment and insight . 9-Lymphatic : no Lymphadenopathy . 10- musculoskeltal : Cervical Spine motor stregnth in the deltoid and biceps, normal right side , normal Left side motor stregnth biceps and the wrist extensors normal right side ,normal left side . motor stregnth in the triceps muscle . normal Right side , normal Left side deep tendon reflexes normal at the biceps , normal at Brachioradialis , normal at triceps. positive cervical facet loading test . Lumber spine moter stegnth lower extremities , thigh and legs 5/5 Right side , 5/5 Left side deep tendon reflexes : normal Knee Jerk , normal ankle Jerk positive lumber facet Loading Test Range of motion of the lumbar spine Flexion 30 degrees, extension 10 degrees strait leg raising test , positive at 30 degree on the right side Fabere test positive RT and negative LT . Sever tenderness over the Sacroiliac joint on the R sides Assessment and Plan Plan: Assessment and plan= chronic neck pain secondary to cervical spinal stenosis, cervical degenerative disc disease, status post cervical fusion Chronic low back pain secondary to sacroiliitis Lumbar radiculitis. Patient could benefit from right-sided sacroiliac joint steroid injection , we will do the procedure twice and if she continued to have low back pain then would consider ordering MRI of the lumbar spine Time with Patient: Less than 30 PQRS Measure Charge Sheet Measure #130: Documentation of Current Meds in Medical Chart: Patient's medications documented in chart Measure #226: Tobacco Use: Screen & Cessation Intervention: Pt not a tobacco user Measure #111: Pneumonia Vaccination: Pneumococcal vaccine NOT administered or previously given Measure #47: Advance Care Plan: Advance care planning discussed & documented, pt chose/unable to give Measure #412: Opioid Treatment Agreement: No documentation of signed opioid treatment agreement Measure #408: Opioid Therapy Follow-up Evaluation: Patient had NO f/u eval minimum every 3 months during opioid therapy Measure #317: Preventitive Care & Scrn High Bld Press & F/U: Normal blood pressure, f/u not required Measure #128: Body Mass Index (BMI) Screening & Follow-up: BMI documented within normal parameters Measure #131: Pain Assessment & Follow-up: Pain positive & plan documented, Follow-up scheduled Measure #431: Unhealthy Alcohol Use Preventative Care & Scrn: Patient not identified as an unhealthy alcohol user PQRS Narrative: Smoking Status Never smoker Do You Want the Pneumonia No Vaccine AT THIS TIME? Narcotic Agreement Date Signed 09/13/16 Blood Pressure 123/86 Pain Intensity [Generalized] 9 Scale Used Numeric (1 - 10) Hx Alcohol Use (MH) No Home Medications: Ambulatory Orders Acyclovir 400 mg PO BID 09/24/15 traMADol HCL [Ultram] 50 mg PO Q6H PRN 01/12/16 Albuterol Inhaler [Ventolin Hfa Inhaler] 2 puff INHALATION RT-Q6H PRN 02/17/16 Ondansetron [Zofran ODT] 4 mg PO Q4H PRN 02/17/16 hydrOXYzine PAMOATE [Vistaril] 25 - 50 mg PO Q12HR PRN 04/29/16 Rizatriptan Odt [Maxalt DRAWING PRESS OPERATOR] 10 mg PO BID PRN 06/21/16 Ibuprofen [Motrin] 600 mg PO Q8HR PRN 08/16/16 Hydrocortisone Cream [Hydrocortisone 2.5% Cream] 1 applic TOPICAL HS 01/13/17 Cetirizine HCl [Zyrtec] 10 mg PO DAILY 04/12/17 Topiramate [Trokendi Xr] 100 mg PO DAILY 04/12/17 Beclomethasone Dip 80 Mcg/Puff [Qvar 80 mcg] 1 puff INHALATION BID 01/30/18 Cyclobenzaprine [Flexeril] 1 tab PO HS 01/30/18 Levothyroxine Sodium 1 tab PO AC-BRKFST 01/30/18 Pregabalin [Lyrica] 1 tab PO HS 01/30/18 Sertraline HCl [Zoloft] 1 tab PO DAILY 01/30/18 Controlled Substance Measures - Controlled Substance Measures Is patient prescribed a controlled substance at discharge?: No When asked, does pt state using other controlled substances?: No If prescribed controlled substance>3 days was MAPS reviewed?: No If Rx opioid, was Start Talking consent form obtained?: No If opioid is for acute pain is fill amount 7 days or less?: No Was information provided regarding opioid addiction?: No
== END | disposition home or self-care (01) ==
LOC: PNWHC3 13:01
PROVIDERS: ATTEND Specialist
DX: G89.29 Other chronic pain (principal); M54.5 Low back pain; R51 Headache; M48.02 Spinal stenosis, cervical region; M50.30 Other cervical disc degeneration, unspecified cervical region; M46.1 Sacroiliitis, not elsewhere classified; M54.16 Radiculopathy, lumbar region; Z98.1 Arthrodesis status; Z79.1 Long term (current) use of non-steroidal anti-inflammatories (NSAID); Z79.891 Long term (current) use of opiate analgesic
CPT/HCPCS: 99211

== ENCOUNTER → 2018-02-13 | Day surgery (SDC) | payer OTHER ==
[2018-02-06 14:37] VITALS: BMI 23.8
[~2018-02-13] MED LIST: LACTATED RINGERS 1,000 ML IV SCH
[2018-02-13 11:09] VITALS: RESP 15; TEMP 97.7
--- NOTE | 2018-02-13 12:04 | P.PCN ---
Date of Procedure: 02/13/18 Surgeon: Santo Haney Pathology: none sent Condition: stable Disposition: PACU Description of Procedure: Preoperative diagnoses= sacroiliac joint dysfunction and sacroiliitis on the Right side Postoperative diagnoses= same as preoperative diagnosis. Procedure= sacroiliac joint steroid injection under fluoroscopic guidance. Anesthesia= conscious sedation with Versed mg and fentanyl micrograms and local infiltration with lidocaine 1% 4 ml Estimated blood loss=minimal. Procedure indication= the patient had a history of severe chronic low back pain , diagnosed with sacroiliitis and lumbar sacral facet arthropathy unresponsive to conservative treatment. Procedure description= the patient was seen and identified in the preoperative holding area, risks and benefits and alternative of the procedure and possible complications discussed with the patient, patient signed the consent. an IV was started, and vital signs were monitored and were stable throughout the procedure , patient was placed in the prone position or table and the lumbosacral area was prepped and draped with a sterile fashion, vital signs were closely monitored during the procedure.The sacroiliac joint was identified on the AP view of fluoroscopy then the C-arm was tilted to the left oblique position to superimpose the anterior and posterior joint lines on each other and to have a unified joint line with the target point at the inferior one third of this line. I used 22-gauge 3-1/2 inch Quincke spinal needle for this procedure and after getting into the sacroiliac joint I injected 40 mg of Kenalog +2 MLS of Ropivacaine 0.5%. Patient tolerated the procedure well without any complication, The patient returned to supine position after the back was cleaned and a Band- Aid applied, the patient transported to recovery room in stable condition and he was monitored for 30 minutes before he was discharged home and then patient was reexamined before going home and patient was discharged in stable condition and patient will follow up with the pain clinic in a few weeks
[2018-02-13 12:35] VITALS: BP 109/68; PULSE 85
--- NOTE | 2018-02-13 14:52 | FL ---
Fluoroscopy HISTORY: Pain 4 seconds fluoroscopy time supplied to the referring clinician. 1 intraoperative C-arm images docume nt the procedure. See dictated report from anesthesia.
== END ==
LOC: ORPAIN 09:53
PROVIDERS: ATTEND Anesthesiology
DX: G89.29 Other chronic pain (principal); M53.3 Sacrococcygeal disorders, not elsewhere classified; M46.1 Sacroiliitis, not elsewhere classified; M54.16 Radiculopathy, lumbar region; Z79.899 Other long term (current) drug therapy; Z79.890 Hormone replacement therapy; Z79.51 Long term (current) use of inhaled steroids
CPT/HCPCS: J2250; J1030; J3010; G0260; 27096

== ENCOUNTER → 2018-02-28 | Day surgery (SDC) | payer OTHER ==
[2018-02-21 15:32] VITALS: BMI 23.8
--- NOTE | 2018-02-28 11:48 | P.PCN ---
Date of Procedure: 02/28/18 Procedure(s) Performed: Procedure= Right sacral iliac joints steroid injection under fluoroscopy guidance Preoperative diagnosis= 1- Right sacroiliitis Postoperative diagnosis=1- Right sacroiliitis . Complication = none Condition= stable Anesthesia= moderate sedation with intravenous Versed 2 mg , and fentanyl 100 micrograms . Indication for the procedure= patient complaining of low back pain , examination was positive for severe tenderness over the sacroiliac joints bilaterally and patient diagnosed with sacroiliitis, for this reason he/ she was good candidate for sacroiliac joint steroid injection. Description of the procedure= procedure risk and benefits discussed with the patient, including but not limited, risk of infection and bleeding, and ALLERGIC reaction to the medication and not complete pain relief and patient agreed with the preceding patient taken to the operating room, placed in prone position or standard monitors applied to the patient then after induction of anesthesia back prepped with chlorhexidine 3 times , Then under strict sterile technique, the right sacroiliac joint the was identified under fluoroscopy guidance been local infiltration of the skin and subcu interstitial with ropivacaine 0.5% 2 ml ,then 25-gauge Quincke Needle advanced slowly under fluoroscopy and placed in the right sacroiliac joint needle placement confirmed with AP and oblique and lateral view and after appropriate needle placement confirmed and after negative aspiration, or heme , then Ropivacaine 0.5% 4 mL, and 40 mg of Kenalog mixed together and injected in the right sacroiliac joint after negative aspiration patient tolerated the procedure well without any complication.
--- NOTE | 2018-02-28 11:55 | FL ---
EXAMINATION TYPE: FL guided pain mgmt statistic DATE OF EXAM: 02/28/2018 COMPARISON: NONE HISTORY: Back pain and sacroiliac joint pain TECHNIQUE: Fluoroscopy. FINDINGS/IMPRESSION: Fluoroscopic guidance was provided during procedure performed by Dr. Collins. A total of 3 seconds of fluoroscopic time was utilized during the procedure and 1 spot image was acq uired.
[2018-02-28 12:13] VITALS: BP 117/65; PULSE 76; RESP 20
== END ==
LOC: ORPAIN 09:39
PROVIDERS: ATTEND Specialist
DX: M46.1 Sacroiliitis, not elsewhere classified (principal); M96.1 Postlaminectomy syndrome, not elsewhere classified; K58.9 Irritable bowel syndrome, unspecified; Z88.8 Allergy status to other drugs, medicaments and biological substances; Z91.09 Other allergy status, other than to drugs and biological substances
CPT/HCPCS: J2250; J3301; J3010; G0260; 27096

== ENCOUNTER → 2018-03-20 | Outpatient (CLI) | payer OTHER ==
[2018-03-20 12:22] VITALS: BP 128/81; PULSE 105; RESP 18
--- NOTE | 2018-03-20 14:29 | P.PN ---
Subjective Progress Note Date: 03/20/18 Principal diagnosis: Polyarthralgia Sommer is a 47-year-old female presents today for follow-up. She continues to have pain in her low back as well as multiple areas throughout her body. She reports her pain in the right lower back did not improved significantly after the SI joint injection that was performed. She continues to have pain even to light touch of the area. She has tenderness over multiple areas throughout the body above and below the umbilicus. She has pain with light touch and minimal palpation. She reports that she has fibromyalgia and uses Lyrica 75 mg once per day at this time as prescribed by her primary care physician. She reports that injections have not really helped in the past and continues to have pain has very limited range of motion of the lumbar spine. She has done something to physical therapy is unsure what kind it was. She reports she does not exercise or have very much physical activity at this time. She denies any new changes from previous visit. Denies any bowel or bladder incontinence. Objective - Vital Signs Vital signs: Vital Signs Temp Pulse 105 H 03/20/18 12:14 Resp 18 03/20/18 12:14 BP 128/81 03/20/18 12:14 Pulse Ox 97 03/20/18 12:14 Intake & Output 03/19/18 03/20/18 03/20/18 18:59 06:59 18:59 Weight 66.224 kg - Exam General: Awake and alert oriented 3 no distress Respiratory exam: No audible wheezing no accessory muscle usage Cardiovascular exam: regular rate, palpable bilateral pulses, no lower extremity edema Abdominal exam: No distention nontender to palpation Cervical spine: Normal alignment, Spurling's negative, facet loading negative Lumbar spine: Loss of lumbar lordosis, normal alignment, tender to palpation over bilateral paraspinal muscles, facet loading is positive bilaterally. Straight leg raise is negative. Tenderness over the entire lumbar spine Sacroiliac joints: tender to palpation, LINDA is negative, Gaenselon negative Neuro exam: Normal sensation in bilateral upper extremities, deep tendon reflexes are 2+ bilateral upper extremities. Normal sensation in bilateral lower extremities. Deep tendon reflexes are 2+ in lower extremities Psych exam: Cooperative, appropriate mood Assessment and Plan Assessment: Fibromyalgia Polyarthralgia Plan: I discussed the patient in her complains are likely related to her fibromyalgia. I advised her that we should increase her Lyrica to 75 mg twice per day for the next 2 months time. If she cannot tolerate doubling the dose at this time she should skip days between increasing the dose. She should take 75 mg once per day for 1 day and then 2 tablets in next day for about one week if she has trouble with the current dose. I think she could increase the dose even further moving forward. I do not believe SI joint injection would be helpful for her as she has tenderness even to light touch of the area on today' s exam. I will have the patient follow-up in 2 months time Time with Patient: Less than 30
== END | disposition home or self-care (01) ==
LOC: PNWHC3 11:59
PROVIDERS: ATTEND Hospitalist
DX: M79.7 Fibromyalgia (principal); M25.50 Pain in unspecified joint; Z79.899 Other long term (current) drug therapy
CPT/HCPCS: 99211

== ENCOUNTER → 2018-05-15 | Outpatient (CLI) | payer OTHER ==
[2018-05-15 13:05] VITALS: BP 123/69; PULSE 77; RESP 16
--- NOTE | 2018-05-15 13:45 | P.PN ---
Subjective Progress Note Date: 05/15/18 This is follow-up visit for this patient with a history of severe and chronic neck pain ,and low back pain secondary to lumbar degenerative disc disease lumbar facet arthropathy, and cervical spinal stenosis, cervical spondylosis we have done interventional pain management injection, diagnostic medial branch blocks lumbar area x2 , which was done 2 years ago ,and she had no benefit from the diagnostic medial branch block, for this reason we will not proceed with the radiofrequency ablation of the medial branch lumbar area, currently she is reporting that she is complaining of severe low back pain with radiation to the right buttock, with radiation to the lower extremity associated with numbness and tingling sensation, and she is complaining of generalized neck pain, recently we have done right side sacroiliac joint steroid injections 2 , she reported that she had 0 benefit after each sacroiliac joint injection , she continued to have severe low back pain mainly on the right side with radiation to the right buttock and the pain increases with any activity , and she is currently on Ultram 50 mg every 6 hours Flexeril 10 mg daily at bedtime, Motrin 800 mg every 8 hours, patient stopped using Lyrica because she had weight gain , Patient denies any side effects of the medication, denies excessive drowsiness or sleepiness, denies suicidal ideation, he denies any change in the bowel movement or urination, no fever or night sweats ,and reports that the current pain medication is NOT helping To control the pain and improve activity of daily living Physical Examinations : 1-Constitutiona : Cooperative , not in acute distress . 2-HEENT : nech ; supple , no Lymphadenopathy , no Thyromegaly , normal thyroid size . eyes : no ptosis , no icterus, no photophobia 3- neurologic : Cranial nerve II to XII intact , no focal neurological deffecit . 4-psychatric : alert , oriented X 3 , appropriate affect , intact judgment and insight . 5-Lymphatic : no Lymphadenopathy . 6- musculoskeltal : exams of the cervical spine = motor strength normal bilateral upper extremities facet loading test cervical area positive. Multiple trigger point identified in the cervical paravertebral muscles exams of the Lumber spine = motor strength lower extremities ,thigh and legs .5/5 deep tendon reflexes : normal Knee Jerk , normal ankle Jerk . lumber facet Loading Test positive strait leg raising test negative bilaterally Fabere test negative bilaterally Range of motion: Range of motion in flexion of the lumbar spine 60 degrees Range of motion range of motion of extension of the lumbar spine 10 Sever tenderness over the Sacroiliac joint on the Right , Severe tenderness over the right trochanteric bursa Diagnostic study= MRI of the lumbar spine with moderate facet hypertrophy L4 5/L5-S1 MRI of the cervical spine C4 5 , C5 6 moderate canal stenosis And multilevel degenerative disc disease and facet hypertrophy in the cervical spine Assessment and plan = - Chronic low back pain secondary to lumbar degenerative disc disease , lumbar spondylosis with facet arthropathy without myelopathy , right sacroiliitis Right contract bursitis Cervical radiculopathy, cervical spinal stenosis, cervical spondylosis Fibromyalgia , - diagnoses, prognosis, and treatment options including but not limited to physical therapy, surgical interventions, interventional therapies , and medication management including narcotics and adjuvant medication were discussed with the patient and all The questions answered. The patient had diagnostic medial branch block lumbar area and it was negative for any improvement in her low back pain for this reason she is not a Good candidate to have the radiofrequency of the medial branch lumbar area. Patient could benefit from lumbar epidural steroid injections under fluoroscopy guidance at the L5-S1 , patient had no benefit from diagnostic medial branch block lumbar area done 2 years ago, and patient had no benefit from the right side sacroiliac joint steroid injection done a few weeks ago - PQRS measures = - Patient's medications are documented in the chart. -Tobacco use is negative and counseling.Given. -Patient's has not received pneumococcal vaccine. -Advanced care planning discussed, patient not eligible. -Opiate contract signed. Patient getting prescription refills from her primary -Pain positive and follow-up visit/procedure is scheduled. -Patient's blood pressure measured [123/69 ] , and documented in the record ,and patient will follow up with the primary care. -Patient's weight was measured and body mass index [ 2720 ] above the normal limits and counseling was done. and patient instructed to follow-up with the primary care physician. -Patient was not identified as an unhealthy alcohol user
== END ==
LOC: PNWHC3 12:43
PROVIDERS: ATTEND Specialist
DX: G89.29 Other chronic pain (principal); M48.02 Spinal stenosis, cervical region; M51.16 Intervertebral disc disorders with radiculopathy, lumbar region; M47.26 Other spondylosis with radiculopathy, lumbar region; M47.22 Other spondylosis with radiculopathy, cervical region; M46.96 Unspecified inflammatory spondylopathy, lumbar region; M46.1 Sacroiliitis, not elsewhere classified; M79.7 Fibromyalgia; M71.9 Bursopathy, unspecified; Z79.891 Long term (current) use of opiate analgesic
CPT/HCPCS: 72195; G0463; 99211

== ENCOUNTER → 2018-05-15 | Outpatient (CLI) | payer OTHER ==
--- NOTE | 2018-05-15 13:45 | P.PN ---
Subjective Progress Note Date: 05/15/18 This is follow-up visit for this patient with a history of severe and chronic neck pain ,and low back pain secondary to lumbar degenerative disc disease lumbar facet arthropathy, and cervical spinal stenosis, cervical spondylosis we have done interventional pain management injection, diagnostic medial branch blocks lumbar area x2 , which was done 2 years ago ,and she had no benefit from the diagnostic medial branch block, for this reason we will not proceed with the radiofrequency ablation of the medial branch lumbar area, currently she is reporting that she is complaining of severe low back pain with radiation to the right buttock, with radiation to the lower extremity associated with numbness and tingling sensation, and she is complaining of generalized neck pain, recently we have done right side sacroiliac joint steroid injections 2 , she reported that she had 0 benefit after each sacroiliac joint injection , she continued to have severe low back pain mainly on the right side with radiation to the right buttock and the pain increases with any activity , and she is currently on Ultram 50 mg every 6 hours Flexeril 10 mg daily at bedtime, Motrin 800 mg every 8 hours, patient stopped using Lyrica because she had weight gain , Patient denies any side effects of the medication, denies excessive drowsiness or sleepiness, denies suicidal ideation, he denies any change in the bowel movement or urination, no fever or night sweats ,and reports that the current pain medication is NOT helping To control the pain and improve activity of daily living Physical Examinations : 1-Constitutiona : Cooperative , not in acute distress . 2-HEENT : nech ; supple , no Lymphadenopathy , no Thyromegaly , normal thyroid size . eyes : no ptosis , no icterus, no photophobia . ENT : normal of hearing , normal oropharynx , no Thrush . 3- Respiratory : Chest clear to auscultations Bilaterally , no wheezing , no Rhonchi . 4- Cardiovascular : regular rate and rhythem , S1 , S2 , no S3 , no S4. 5- Gastrointestinal : abdomen soft no tenderness , bowel sounds positive all four quadrents , no organomegally . 6- Genitourinary : Defferred . 7- neurologic : Cranial nerve II to XII intact , no focal neurological deffecit . 8-psychatric : alert , oriented X 3 , appropriate affect , intact judgment and insight . 9-Lymphatic : no Lymphadenopathy . 10- musculoskeltal : exams of the cervical spine = motor strength normal bilateral upper extremities facet loading test cervical area positive. Multiple trigger point identified in the cervical paravertebral muscles exams of the Lumber spine = motor strength lower extremities ,thigh and legs .5/5 deep tendon reflexes : normal Knee Jerk , normal ankle Jerk . lumber facet Loading Test positive strait leg raising test negative bilaterally Fabere test negative bilaterally Range of motion: Range of motion in flexion of the lumbar spine 60 degrees Range of motion range of motion of extension of the lumbar spine 10 Sever tenderness over the Sacroiliac joint on the Right , Severe tenderness over the right trochanteric bursa Diagnostic study= MRI of the lumbar spine with moderate facet hypertrophy L4 5/L5-S1 MRI of the cervical spine C4 5 , C5 6 moderate canal stenosis And multilevel degenerative disc disease and facet hypertrophy in the cervical spine Assessment and plan = - Chronic low back pain secondary to lumbar degenerative disc disease , lumbar spondylosis with facet arthropathy without myelopathy , right sacroiliitis Right contract bursitis Cervical radiculopathy, cervical spinal stenosis, cervical spondylosis Fibromyalgia , - diagnoses, prognosis, and treatment options including but not limited to physical therapy, surgical interventions, interventional therapies , and medication management including narcotics and adjuvant medication were discussed with the patient and all The questions answered. The patient had diagnostic medial branch block lumbar area and it was negative for any improvement in her low back pain for this reason she is not a Good candidate to have the radiofrequency of the medial branch lumbar area. Patient could benefit from lumbar epidural steroid injections under fluoroscopy guidance at the L5-S1 , patient had no benefit from diagnostic medial branch block lumbar area done 2 years ago, and patient had no benefit from the right side sacroiliac joint steroid injection done a few weeks ago - PQRS measures = - Patient's medications are documented in the chart. -Tobacco use is negative and counseling.Given. -Patient's has not received pneumococcal vaccine. -Advanced care planning discussed, patient not eligible. -Opiate contract signed. Patient getting prescription refills from her primary -Pain positive and follow-up visit/procedure is scheduled. -Patient's blood pressure measured [123/69 ] , and documented in the record ,and patient will follow up with the primary care. -Patient's weight was measured and body mass index [ 2720 ] above the normal limits and counseling was done. and patient instructed to follow-up with the primary care physician. -Patient was not identified as an unhealthy alcohol user
--- NOTE | 2018-05-15 16:22 | MR ---
EXAMINATION TYPE: MR sacroiliac joints wo con DATE OF EXAM: 05/15/2018 COMPARISON: None HISTORY: Low Back and pelvic/sacroiliac joint Pain Standard multiplanar, multisequence MRI departmental protocol Multiplanar, multisequence images of the pelvis focusing on the sacroiliac joints were acquired. FINDINGS: Sacroiliac joints are symmetric and felt within normal limits. No suspicious asymmetry is i dentified. No obvious spurring is seen. Bone marrow signal intensity is maintained without suspicious joint space edema. Visualized portion of pelvis shows nondilated bowel loops. There is poor distention of bladder. Uteru s is not well-visualized and suspected surgically absent. No concerning pelvic fluid collection is no iveth. IMPRESSION: No MRI evidence for active or acute sacroiliitis.
== END | disposition home or self-care (01) ==
LOC: RADMRIMAIN 14:22
PROVIDERS: ATTEND Internal Medicine Rheumatology
DX: M25.9 Joint disorder, unspecified (principal)
CPT/HCPCS: 72195

== ENCOUNTER 2018-07-05 17:16 | Emergency (ER) | payer OTHER ==
[2018-07-05] MEDS ORDERED: AZITHROMYCIN 500 MG in SODIUM CHLORIDE 0.9% 250 ML IVPB STA (17:57)
[2018-07-05] MEDS ORDERED: SODIUM CHLORIDE 0.9% 1,000 ML IV STA ×2 (17:57)
[2018-07-05] MEDS ORDERED: methylPREDNISolone SOD SUCCI 125 MG/2 ML VIAL IV STA (17:57)
[2018-07-05] MEDS ORDERED: IPRATROPIUM-ALBUTEROL 3 ML NEB INHALATION STA (17:57)
[2018-07-05] MEDS ORDERED: KETOROLAC 30 MG/ML 1 ML VIAL IVP STA (17:58)
--- NOTE | 2018-07-05 18:29 | ED ---
URI HPI - General Chief Complaint: Upper Respiratory Infection Stated Complaint: Pneumonia Time Seen by Provider: 07/05/18 17:37 Source: patient, RN notes reviewed, old records reviewed Mode of arrival: ambulatory Limitations: no limitations - History of Present Illness Initial Comments: This is a 40-year-old female the ER for evaluation. Patient presents today for evaluation regards to the not feeling well and having current episodic fevers. She was treated with pneumonia and still feels like she is having occasional difficulty breathing per her main results Just diffuse not feeling well bodyaches and pains fevers. No recent travel history or sick contacts MD Complaint: fever, cough, nasal congestion -: days(s) Severity: moderate Severity scale (1-10): 5 Quality: aching Consistency: intermittent Improves With: NSAID, OTC cold medicine Worsens With: activity Associated Symptoms: fever, chills, myalgias - Related Data Home Medications Medication Instructions Recorded Confirmed traMADol HCL [Ultram] 50 mg PO Q6H PRN 01/12/16 07/05/18 Albuterol Inhaler [Ventolin Hfa 2 puff INHALATION RT-Q6H PRN 02/17/16 07/05/18 Inhaler] Ondansetron [Zofran ODT] 4 mg PO Q4H PRN 02/17/16 07/05/18 Rizatriptan Odt [Maxalt [employer]] 10 mg PO BID PRN 06/21/16 07/05/18 Ibuprofen [Motrin] 800 mg PO Q8HR PRN 08/16/16 07/05/18 Cetirizine HCl [Zyrtec] 10 mg PO DAILY 04/12/17 07/05/18 Topiramate [Trokendi Xr] 100 mg PO HS 04/12/17 07/05/18 Beclomethasone Dip 80 Mcg/Puff 1 puff INHALATION BID 01/30/18 07/05/18 [Qvar 80 mcg] Cyclobenzaprine [Flexeril] 10 mg PO HS 01/30/18 07/05/18 Sertraline HCl [Zoloft] 100 mg PO DAILY 01/30/18 07/05/18 clonazePAM [KlonoPIN] 0.5 mg PO DAILY 05/15/18 07/05/18 Azithromycin [Zithromax Z-pack] See Taper PO DIRECTED 07/05/18 07/05/18 Benzonatate [Tessalon Perles] 100 mg PO TID PRN 07/05/18 07/05/18 Levothyroxine Sodium [Synthroid] 75 mcg PO DAILY 07/05/18 07/05/18 predniSONE 10 mg PO TID 07/05/18 07/05/18 Previous Rx's Medication Instructions Recorded Oseltamivir [Tamiflu] 75 mg PO Q12HR #10 cap 07/05/18 Allergies Allergy/AdvReac Type Severity Reaction Status Date / Time adhesive tape Allergy BLISTERS Verified 07/05/18 17:55 gabapentin Allergy FEET Verified 07/05/18 17:55 SWELLING AND ITCHING acetaminophen [From Vicodin] AdvReac Unknown Verified 07/05/18 17:55 hydrocodone [From Vicodin] AdvReac Unknown Verified 07/05/18 17:55 pregabalin [From Lyrica] AdvReac Unknown Verified 07/05/18 17:55 Review of Systems ROS Statement: Those systems with pertinent positive or pertinent negative responses have been documented in the HPI. ROS Other: All systems not noted in ROS Statement are negative. Past Medical History Past Medical History: Fibromyalgia, Musculoskeletal Disorder Additional Past Medical History / Comment(s): RAYNAUD'S (TAKING NIFEDIPINE FOR IT),migraines, IBS, past hx irregular heartrate, being tested for smooth muscle autoimmune, chronic R/L leg pain with R side worse, recent MRI showed spot on kidney and L ovary, DDD IN NECK AND SPINE History of Any Multi-Drug Resistant Organisms: None Reported Past Surgical History: Bladder Surgery, Hysterectomy Additional Past Surgical History / Comment(s): PAIN CLINIC PROCEDURES, Cervical pain injections, cervical fusion, D&C, loop recorder/later removed, EGD/ colonoscopy Past Anesthesia/Blood Transfusion Reactions: Previous Problems w/ Anesthesia, Motion Sickness Additional Past Anesthesia/Blood Transfusion Reaction / Comment(s): "wake up coughing, WITH GENERAL ANESTHESIA", Past Psychological History: Anxiety Smoking Status: Never smoker - Past Family History Mother Family Medical History: Cancer, Hypertension Additional Family Medical History / Comment(s): Mother has had skin cancer. She possibly has lupus. Father Family Medical History: Hypertension General Exam Limitations: no limitations General appearance: alert, in no apparent distress Head exam: Present: atraumatic, normocephalic, normal inspection Eye exam: Present: normal appearance, PERRL, EOMI. Absent: scleral icterus, conjunctival injection, periorbital swelling ENT exam: Present: normal exam, mucous membranes moist Neck exam: Present: normal inspection. Absent: tenderness, meningismus, lymphadenopathy Respiratory exam: Present: normal lung sounds bilaterally. Absent: respiratory distress, wheezes, rales, rhonchi, stridor Cardiovascular Exam: Present: regular rate, normal rhythm, normal heart sounds. Absent: systolic murmur, diastolic murmur, rubs, gallop, clicks GI/Abdominal exam: Present: soft, normal bowel sounds. Absent: distended, tenderness, guarding, rebound, rigid Extremities exam: Present: normal inspection, full ROM, normal capillary refill. Absent: tenderness, pedal edema, joint swelling, calf tenderness Back exam: Present: normal inspection Neurological exam: Present: alert, oriented X3, CN II-XII intact Psychiatric exam: Present: normal affect, normal mood Skin exam: Present: warm, dry, intact, normal color. Absent: rash Course Vital Signs 07/05/18 07/05/18 07/05/18 17:28 18:20 18:28 Temperature 98.5 F Pulse Rate 100 90 88 Respiratory 18 Rate Blood Pressure 128/87 O2 Sat by Pulse 100 Oximetry 07/05/18 07/05/18 20:32 22:15 Temperature 98.3 F Pulse Rate 76 86 Respiratory 20 18 Rate Blood Pressure 118/65 116/68 O2 Sat by Pulse 99 98 Oximetry - Reevaluation(s) Reevaluation #1: Medical records reviewed Patient encouraged to discharge home, normal computed tomography scan, normal x- ray normal lab work. Patient positive flu Medical Decision Making - Medical Decision Making 40 female the ER for evaluation. Patient presents today for evaluation of fever not feeling well. Positive influenza, will discharge on Tamiflu - Lab Data Result diagrams: 07/05/18 18:55 07/05/18 18:55 Lab Results 07/05/18 07/05/18 07/05/18 Range/Units 18:55 18:55 18:55 WBC 3.1 L (3.8-10.6) k/uL RBC 4.22 (3.80-5.40) m/uL Hgb 13.3 (11.4-16.0) gm/dL Hct 40.5 (34.0-46.0) % MCV 95.8 (80.0-100.0) fL MCH 31.5 (25.0-35.0) pg MCHC 32.9 (31.0-37.0) g/dL RDW 12.4 (11.5-15.5) % Plt Count 216 (150-450) k/uL Neutrophils % 57 % Lymphocytes % 35 % Monocytes % 4 % Eosinophils % 1 % Basophils % 0 % Neutrophils # 1.8 (1.3-7.7) k/uL Lymphocytes # 1.1 (1.0-4.8) k/uL Monocytes # 0.1 (0-1.0) k/uL Eosinophils # 0.0 (0-0.7) k/uL Basophils # 0.0 (0-0.2) k/uL PT (9.0-12.0) sec INR (<1.2) APTT (22.0-30.0) sec Sodium 141 (137-145) mmol/L Potassium 3.9 (3.5-5.1) mmol/L Chloride 108 H (98-107) mmol/L Carbon Dioxide 22 (22-30) mmol/L Anion Gap 11 mmol/L BUN 18 H (7-17) mg/dL Creatinine 0.69 (0.52-1.04) mg/dL Est GFR (CKD-EPI)AfAm >90 (>60 ml/min/1.73 sqM) Est GFR (CKD-EPI)NonAf >90 (>60 ml/min/1.73 sqM) Glucose 136 H (74-99) mg/dL Calcium 11.0 H (8.4-10.2) mg/dL Magnesium 1.9 (1.6-2.3) mg/dL Total Bilirubin 0.6 (0.2-1.3) mg/dL AST 17 (14-36) U/L ALT 29 (9-52) U/L Alkaline Phosphatase 124 (38-126) U/L Troponin I (0.000-0.034) ng/mL NT-Pro-B Natriuret Pep 23 pg/mL Total Protein 7.4 (6.3-8.2) g/dL Albumin 4.3 (3.5-5.0) g/dL Influenza Type A RNA (Not Detectd) Influenza Type B (PCR) (Not Detectd) 03/06/19 03/06/19 03/06/19 Range/Units 18:55 18:55 21:12 WBC (3.8-10.6) k/uL RBC (3.80-5.40) m/uL Hgb (11.4-16.0) gm/dL Hct (34.0-46.0) % MCV (80.0-100.0) fL MCH (25.0-35.0) pg MCHC (31.0-37.0) g/dL RDW (11.5-15.5) % Plt Count (150-450) k/uL Neutrophils % % Lymphocytes % % Monocytes % % Eosinophils % % Basophils % % Neutrophils # (1.3-7.7) k/uL Lymphocytes # (1.0-4.8) k/uL Monocytes # (0-1.0) k/uL Eosinophils # (0-0.7) k/uL Basophils # (0-0.2) k/uL PT 10.1 (9.0-12.0) sec INR 0.9 (<1.2) APTT 22.3 (22.0-30.0) sec Sodium (137-145) mmol/L Potassium (3.5-5.1) mmol/L Chloride (98-107) mmol/L Carbon Dioxide (22-30) mmol/L Anion Gap mmol/L BUN (7-17) mg/dL Creatinine (0.52-1.04) mg/dL Est GFR (CKD-EPI)AfAm (>60 ml/min/1.73 sqM) Est GFR (CKD-EPI)NonAf (>60 ml/min/1.73 sqM) Glucose (74-99) mg/dL Calcium (8.4-10.2) mg/dL Magnesium (1.6-2.3) mg/dL Total Bilirubin (0.2-1.3) mg/dL AST (14-36) U/L ALT (9-52) U/L Alkaline Phosphatase (38-126) U/L Troponin I <0.012 (0.000-0.034) ng/mL NT-Pro-B Natriuret Pep pg/mL Total Protein (6.3-8.2) g/dL Albumin (3.5-5.0) g/dL Influenza Type A RNA Detected H (Not Detectd) Influenza Type B (PCR) Not Detected (Not Detectd) - EKG Data -: EKG Interpreted by Me (EKG shows sinus 76, DC 142, QRS 80, QTC 460) - Radiology Data Radiology results: report reviewed (CTA chest is negative for acute disease), image reviewed Disposition Clinical Impression: Influenza, Influenza A Disposition: HOME SELF-CARE Condition: Good Instructions (If sedation given, give patient instructions): Influenza (ED) Prescriptions: Oseltamivir [Tamiflu] 75 mg PO Q12HR #10 cap Is patient prescribed a controlled substance at d/c from ED?: No Referrals: Abraham Pelletier DO [Primary Care Provider] - 1-2 days
[2018-07-05 19:27] LABS: Basophils % (A) 0 %; Eosinophils % (A) 1 %; HCT 40.5 % (34.0-46.0); HGB 13.3 gm/dL (11.4-16.0); Lymphocytes # (A) 1.1 k/uL (1.0-4.8); Lymphocytes % (A) 35 %; MCH 31.5 pg (25.0-35.0); MCHC 32.9 g/dL (31.0-37.0); MCV 95.8 fL (80.0-100.0); Mean Platelet Volume 7.7; Monocytes # (A) 0.1 k/uL (0-1.0); Monocytes % (A) 4 %; Neutrophils # (A) 1.8 k/uL (1.3-7.7); Neutrophils % (A) 57 %; Platelet Count 216 k/uL (150-450); RBC 4.22 m/uL (3.80-5.40); RDW 12.4 % (11.5-15.5); WBC 3.1 k/uL (3.8-10.6)
[2018-07-05 19:38] LABS: INR 0.9 (<1.2); Partial Thromboplastin Time 22.3 sec (22.0-30.0); Prothrombin Time 10.1 sec (9.0-12.0)
--- NOTE | 2018-07-05 19:40 | XR ---
EXAMINATION TYPE: XR chest 2V DATE OF EXAM: 07/05/2018 COMPARISON: 06/27/2017 HISTORY: Difficulty breathing TECHNIQUE: Frontal and lateral views of the chest are obtained. FINDINGS: Heart and mediastinum are normal. Lungs are clear. Diaphragm is normal. Bony thorax appear s normal. IMPRESSION: Normal chest. No change.
[2018-07-05 19:44] LABS: ALT 29 U/L (9-52); AST 17 U/L (14-36); Albumin 4.3 g/dL (3.5-5.0); Alkaline Phosphatase 124 U/L (38-126); Anion Gap 11 mmol/L; Blood Urea Nitrogen 18 mg/dL (7-17); Carbon Dioxide 22 mmol/L (22-30); Chloride 108 mmol/L (98-107); Glucose 136 mg/dL (74-99); Magnesium 1.9 mg/dL (1.6-2.3); Potassium 3.9 mmol/L (3.5-5.1); Sodium 141 mmol/L (137-145); Total Bilirubin 0.6 mg/dL (0.2-1.3); Total Protein 7.4 g/dL (6.3-8.2)
--- NOTE | 2018-07-05 20:49 | CT ---
EXAMINATION TYPE: CT angio chest DATE OF EXAM: 07/05/2018 8:31 PM COMPARISON: None HISTORY: cough, pneumonia CT DLP: 297.1 mGycm Automated exposure control for dose reduction was used. CONTRAST: CTA scan of the thorax is performed with IV Contrast, patient injected with 80cc mL of Isovue 370, pu lmonary embolism protocol. There are 3-D post processed images.. FINDINGS: The lungs are clear of consolidation. There is no evidence of a pulmonary mass. There is minimal line ar density adjacent to the major fissure on the right side consistent with subsegmental atelectasis. There is no evidence of pleural effusion. Heart size is normal. There is no pericardial effusion. There is normal contrast opacification of the pulmonary arteries. There are no filling defects. There is no mediastinal adenopathy. Thoracic aorta appears normal. There is no aneurysm or dissection. The bony thorax is intact. IMPRESSION: NO EVIDENCE OF PULMONARY EMBOLISM. NEGATIVE EXAM.
[2018-07-05 22:32] VITALS: BP 116/68; PULSE 86; RESP 18; TEMP 98.3
== END 2018-07-05 22:15 | disposition home or self-care (01) ==
LOC: EC 17:16 → SUPCPDRO 17:16 → EC 22:15
DX: J10.1 Influenza due to other identified influenza virus with other respiratory manifestations (principal); F41.9 Anxiety disorder, unspecified; I73.00 Raynaud's syndrome without gangrene; G89.29 Other chronic pain; Z88.5 Allergy status to narcotic agent; Z88.6 Allergy status to analgesic agent; Z88.8 Allergy status to other drugs, medicaments and biological substances; Z91.09 Other allergy status, other than to drugs and biological substances; Z79.51 Long term (current) use of inhaled steroids; Z79.52 Long term (current) use of systemic steroids; Z79.890 Hormone replacement therapy; Z79.899 Other long term (current) drug therapy; Z87.01 Personal history of pneumonia (recurrent); Z86.69 Personal history of other diseases of the nervous system and sense organs; Z98.1 Arthrodesis status
CPT/HCPCS: 36415; 94640; 93005; 83880; 80053; 83735; 84484; 85025; 85610; 85730; 87040; 87502; 71046; 71275; 99285; 96365; 96366; 96375 ×2; 96361; J2930; J0456; J1885; Q9967

== ENCOUNTER 2018-09-30 21:03 | Emergency (ER) | payer OTHER ==
--- NOTE | 2018-09-30 21:47 | ED ---
Head Injury HPI - General Chief complaint: Head Injury Stated complaint: Head injury Time Seen by Provider: 09/30/18 21:31 Source: patient Mode of arrival: ambulatory Limitations: no limitations - History of Present Illness Initial comments: This patient is a 48-year-old woman who does have history of previous cervical spine fusion, who presents to be evaluated for a head injury. The patient states that she was stabilizing a ladder while her was cutting a tree branch. The branch fell, sliding down the ladder and striking her on the top of the head slightly to the left. She states she was dazed, but her states no loss of consciousness. Patient indicates headache and nausea. The patient states she also was having some tingling into her right arm, though she has a difficult time stating that this was not present to some extent before the injury. Patient states that this happened in [place] and they decided to come on into [place] to be seen. Patient denies any other radiation of the pain. No back pain. No difficulty walking. No leg pain or numbness. No change in bladder or bowel. MD Complaint: head injury -: hour(s) Mechanism of Injury: other Location: parietal Loss of Consciousness: no Place: outdoors Radiation: none Severity: moderate Quality: aching Consistency: constant Other Injuries: neck Associated Symptoms: nausea - Related Data Home Medications Medication Instructions Recorded Confirmed traMADol HCL [Ultram] 50 mg PO Q6H PRN 01/12/16 09/30/18 Albuterol Inhaler [Ventolin Hfa 2 puff INHALATION RT-Q6H PRN 02/17/16 09/30/18 Inhaler] Rizatriptan Odt [Maxalt [employer]DER] 10 mg PO BID PRN 06/21/16 09/30/18 Ibuprofen [Motrin] 800 mg PO Q8HR PRN 08/16/16 09/30/18 Cetirizine HCl [Zyrtec] 10 mg PO DAILY 04/12/17 09/30/18 Topiramate [Trokendi Xr] 100 mg PO HS 04/12/17 09/30/18 Beclomethasone Dip 80 Mcg/Puff 1 puff INHALATION RT-BID 01/30/18 09/30/18 [Qvar 80 mcg] Cyclobenzaprine [Flexeril] 10 mg PO HS 01/30/18 09/30/18 Sertraline HCl [Zoloft] 100 mg PO DAILY 01/30/18 09/30/18 clonazePAM [KlonoPIN] 0.5 mg PO DAILY 05/15/18 09/30/18 Benzonatate [Tessalon Perles] 100 mg PO TID PRN 07/05/18 09/30/18 Levothyroxine Sodium [Synthroid] 75 mcg PO DAILY 07/05/18 09/30/18 Allergies/Adverse reactions: Allergies Allergy/AdvReac Type Severity Reaction Status Date / Time adhesive tape Allergy BLISTERS Verified 09/30/18 21:56 gabapentin Allergy FEET Verified 09/30/18 21:56 SWELLING AND ITCHING acetaminophen [From Vicodin] AdvReac Unknown Verified 09/30/18 21:56 hydrocodone [From Vicodin] AdvReac Unknown Verified 09/30/18 21:56 pregabalin [From Lyrica] AdvReac Unknown Verified 09/30/18 21:56 Review of Systems ROS Statement: Those systems with pertinent positive or pertinent negative responses have been documented in the HPI. ROS Other: All systems not noted in ROS Statement are negative. Constitutional: Denies: fever, chills, weakness ENT: Denies: hearing loss, epistaxis Respiratory: Denies: cough, dyspnea Cardiovascular: Denies: chest pain, palpitations, edema Gastrointestinal: Reports: nausea. Denies: abdominal pain, vomiting Genitourinary: Denies: dysuria, frequency, hematuria Musculoskeletal: Denies: back pain Skin: Denies: rash Neurological: Reports: headache, paresthesias. Denies: weakness, numbness, confusion, abnormal gait Past Medical History Past Medical History: Fibromyalgia, Musculoskeletal Disorder Additional Past Medical History / Comment(s): RAYNAUD'S (TAKING NIFEDIPINE FOR IT),migraines, IBS, past hx irregular heartrate, being tested for smooth muscle autoimmune, chronic R/L leg pain with R side worse, recent MRI showed spot on kidney and L ovary, DDD IN NECK AND SPINE, History of Any Multi-Drug Resistant Organisms: None Reported Past Surgical History: Bladder Surgery, Hysterectomy Additional Past Surgical History / Comment(s): PAIN CLINIC PROCEDURES, Cervical pain injections, cervical fusion, D&C, loop recorder/later removed, EGD/colonoscopy, Past Anesthesia/Blood Transfusion Reactions: Previous Problems w/ Anesthesia, Motion Sickness Additional Past Anesthesia/Blood Transfusion Reaction / Comment(s): "wake up coughing, WITH GENERAL ANESTHESIA", Past Psychological History: Anxiety, Depression Smoking Status: Never smoker Past Alcohol Use History: Rare Past Drug Use History: None Reported - Past Family History Mother Family Medical History: Cancer, Hypertension Additional Family Medical History / Comment(s): Mother has had skin cancer. She possibly has lupus. Father Family Medical History: Hypertension General Exam Limitations: no limitations General appearance: alert, in no apparent distress Head exam: Present: normocephalic, other (Hematoma to the left side of the parietal scalp. There is tenderness, but no palpable deformity.) Eye exam: Present: normal appearance, PERRL, EOMI. Absent: scleral icterus, conjunctival injection, nystagmus, periorbital swelling, periorbital tenderness ENT exam: Present: normal oropharynx, mucous membranes moist, normal external ear exam Neck exam: Present: normal inspection, other (Cervical collar). Absent: tenderness Respiratory exam: Present: normal lung sounds bilaterally. Absent: respiratory distress, wheezes, rales, rhonchi, stridor Cardiovascular Exam: Present: regular rate, normal rhythm, normal heart sounds. Absent: systolic murmur, diastolic murmur, rubs, gallop GI/Abdominal exam: Present: soft. Absent: distended, tenderness, guarding, rebound, rigid, mass Extremities exam: Present: normal inspection, normal capillary refill. Absent: pedal edema, calf tenderness Back exam: Present: normal inspection. Absent: CVA tenderness (R), CVA tenderness (L) Neurological exam: Present: alert, oriented X3, CN II-XII intact. Absent: motor sensory deficit Skin exam: Present: warm, dry, intact, normal color. Absent: rash Course Vital Signs 09/30/18 21:07 Temperature 98.1 F Pulse Rate 103 H Respiratory 18 Rate Blood Pressure 147/84 O2 Sat by Pulse 100 Oximetry Disposition Clinical Impression: Closed head injury, Cervical strain, Paresthesia Disposition: HOME SELF-CARE Condition: Good Instructions (If sedation given, give patient instructions): Head Injury (ED), Paresthesia (ED), Cervical Strain (ED) Is patient prescribed a controlled substance at d/c from ED?: No Referrals: Abraham Pelletier DO [Primary Care Provider] - 1-2 days Narendra Conrad MD [REFERRING] - 1-2 days
--- NOTE | 2018-09-30 22:31 | CT ---
EXAM: CT Head Without Intravenous Contrast CLINICAL HISTORY: ITS.REASON CT Reason: trauma TECHNIQUE: Axial computed tomography images of the head/brain without intravenous contrast. CTDI is 55 mGy and DLP is 1385 mGy-cm. This CT exam was performed using one or more of the following dose reduction techniques: automated exposure control, adjustment of the mA and/or kV according to patient size, and/or use of iterative reconstruction technique. COMPARISON: 07/22/16 CT head FINDINGS: Brain: No hemorrhage, large hypodensity, or mass effect. Ventricles: No hydrocephalus. Bones/joints: Unremarkable. Soft tissues: Left frontal scalp soft tissue swelling. Sinuses: Unremarkable. Mastoid air cells: Clear. IMPRESSION: No acute hemorrhage, hydrocephalus, or mass effect. EXAM: CT Cervical Spine Without Intravenous Contrast CLINICAL HISTORY: ITS.REASON CT Reason: trauma TECHNIQUE: Axial computed tomography images of the cervical spine without intravenous contrast. CTDI is 55 mGy and DLP is 1385 mGy-cm. This CT exam was performed using one or more of the following dose reduction techniques: automated exposure control, adjustment of the mA and/or kV according to patient size, and/or use of iterative reconstruction technique. COMPARISON: No relevant prior studies available. FINDINGS: Vertebrae: No acute fracture. C4-5 anterior fusion hardware is intact. C4-C7 vertebral bodies are partially fused. Discs/spinal canal/neural foramina: Mild spinal canal stenosis at C3-C7 secondary to degenerative changes. Soft tissues: Unremarkable. IMPRESSION: No acute fracture or subluxation.
[2018-09-30] MEDS ORDERED: MORPHINE SULFATE 4 MG/ML SYRINGE IM STA (23:34)
[2018-10-01 00:17] VITALS: BP 114/67; PULSE 77; RESP 14; TEMP 98.3
== END 2018-10-01 00:17 | disposition home or self-care (01) ==
LOC: EC 21:03
DX: S09.90XA Unspecified injury of head, initial encounter (principal); S16.1XXA Strain of muscle, fascia and tendon at neck level, initial encounter; R20.2 Paresthesia of skin; M79.7 Fibromyalgia; F41.9 Anxiety disorder, unspecified; F32.9 Major depressive disorder, single episode, unspecified; Z79.899 Other long term (current) drug therapy; Z79.890 Hormone replacement therapy; Z88.8 Allergy status to other drugs, medicaments and biological substances; Z88.5 Allergy status to narcotic agent; Z88.6 Allergy status to analgesic agent; Z91.048 Other nonmedicinal substance allergy status; Z98.1 Arthrodesis status; W20.8XXA Other cause of strike by thrown, projected or falling object, initial encounter
CPT/HCPCS: 72125; 70450; 99283; 96372; J2270

== ENCOUNTER → 2020-12-08 | Outpatient (CLI) | payer OTHER ==
[2020-12-08 14:47] LABS: Basophils % (A) 1 %; Eosinophils # (A) 0.1 k/uL (0-0.7); Eosinophils % (A) 1 %; HCT 43.4 % (34.0-46.0); HGB 14.2 gm/dL (11.4-16.0); Lymphocytes # (A) 1.6 k/uL (1.0-4.8); Lymphocytes % (A) 27 %; MCH 31.2 pg (25.0-35.0); MCHC 32.7 g/dL (31.0-37.0); MCV 95.4 fL (80.0-100.0); Mean Platelet Volume 7.8; Monocytes # (A) 0.3 k/uL (0-1.0); Monocytes % (A) 5 %; Neutrophils # (A) 3.7 k/uL (1.3-7.7); Neutrophils % (A) 64 %; Platelet Count 312 k/uL (150-450); RBC 4.55 m/uL (3.80-5.40); RDW 12.1 % (11.5-15.5); WBC 5.8 k/uL (3.8-10.6)
--- NOTE | 2020-12-08 14:55 | FL ---
EXAMINATION TYPE: FL barium swallow DATE OF EXAM: 12/08/2020 COMPARISON: None HISTORY: Difficulty swallowing TECHNIQUE: Double air contrast technique is utilized. FINDINGS: 42 seconds fluoroscopy time was provided for the procedure. 29 images are obtained. Esophagus is normal caliber has normal contour the gastroesophageal junction. Gastroesophageal juncti on opens to normal caliber. No intraluminal or extramural defects are evident. Note is made of secondary and tertiary contractions during the examination compatible with presbyesop hagus. IMPRESSION: 1. Mild presbyesophagus.
[2020-12-08 14:58] LABS: ALT 10 U/L (4-34); AST 18 U/L (14-36); African American GFR (CKD) 66 (>60 ml/min/1.73 sqM); Albumin 4.5 g/dL (3.5-5.0); Alkaline Phosphatase 90 U/L (38-126); Anion Gap 9 mmol/L; Blood Urea Nitrogen 14 mg/dL (7-17); C Reactive Protein <0.5 mg/dL (<1.0); Calcium 12.3 mg/dL (8.4-10.2); Carbon Dioxide 30 mmol/L (22-30); Chloride 100 mmol/L (98-107); Glucose 91 mg/dL (74-99); Non-African American GFR(CKD) 57 (>60 ml/min/1.73 sqM); Potassium 3.8 mmol/L (3.5-5.1); Sodium 139 mmol/L (137-145); Total Bilirubin 0.4 mg/dL (0.2-1.3); Total Protein 7.4 g/dL (6.3-8.2)
[2020-12-08 16:34] LABS: Erythrocyte Sedimentation Rate 8 mm/hr (0-20)
== END | disposition home or self-care (01) ==
LOC: RADUSWWP 12:50
PROVIDERS: ATTEND Orthopaedic Surgery
DX: K22.8 Other specified diseases of esophagus (principal)
CPT/HCPCS: 74220; 80053; 82306; 85025; 85652; 86140

== ENCOUNTER → 2020-12-11 | Outpatient (CLI) | payer OTHER ==
--- NOTE | 2020-12-11 21:12 | MR ---
EXAMINATION TYPE: MR cspine/lspine wo con DATE OF EXAM: 12/11/2020 COMPARISON: MRI cervical spine 05/19/2017 HISTORY: Neck/low back pain into extremities TECHNIQUE: Multiplanar, multisequence imaging of the cervical and lumbar spine were obtained without IV contrast. FINDINGS: MRI CERVICAL SPINE: CLINICAL HISTORY: Neck and back pain TECHNIQUE: Multiplanar, multisequence imaging of the cervical spine and lumbar spine was performed wi thout contrast. COMPARISON: MR cervical spine 05/19/2017 FINDINGS: Sagittal images of the cervical spine show the craniocervical junction to appear within nor mal limits. Degenerative changes of the atlantoaxial joint. The cervical and upper thoracic spinal c ord is normal in course, caliber, and signal. There is straightening of the cervical lordosis. ACDF at C4-C5. Vertebral body heights are within nor mal limits. Hemangioma of the T2 vertebral body otherwise bone marrow signal is normal. There is multilevel disc desiccation in the cervical spine with osseous fusion of the vertebral josué s from C4 through C7. There is no acute fracture. Level by level: C2-C3: Mild facet joint arthropathy. No significant canal or neural foraminal stenosis. C3-C4: Posterior disc osteophyte complex and uncovertebral joint arthropathy partially effaces the ve ntral CSF. No significant spinal canal stenosis. There is moderate to severe right and moderate left neuroforaminal stenosis. C4-C5: Central disc protrusion. Uncovertebral joint arthropathy. Ligamentum flavum thickening. No sig nificant canal or neuroforaminal stenosis. C5-C6: Right greater than left uncovertebral joint arthropathy. Ligamentum flavum thickening. No sign ificant neuroforaminal stenosis. C6-C7: Posterior osteophyte, uncovertebral arthropathy and ligamentum flavum thickening. No significa nt canal stenosis. Moderate left neural foraminal stenosis. C7-T1: No significant degenerative change. LUMBAR SPINE: There are 5 lumbar type vertebral bodies. Vertebral body heights and alignment are within normal limits. Hemangioma in the L3 vertebral body b one marrow signal is normal. There is no acute fracture. The conus medullaris appears normal and is located at L1. Multilevel disc desiccation in the lumbar spine. T12-L1: No significant degenerative change. L1-L2: Facet joint arthropathy. No significant canal or neural foraminal stenosis. L2-L3: Circumferential disc bulge that partially effaces the ventral CSF, facet joint arthropathy and ligamentum flavum thickening that indents the dorsal thecal sac. No significant canal or neural fora geena stenosis. L3-L4: Circumferential disc bulge with mild effacement of the ventral CSF. Facet joint arthropathy an d ligamentum flavum thickening that indents the dorsal thecal sac. No significant canal stenosis. Mil d right neuroforaminal stenosis. L4-L5: Mild circumferential disc bulge, facet joint arthropathy with small bilateral facet effusions, ligamentum flavum thickening. No significant canal stenosis. Mild bilateral neural foraminal stenosi s. L5-S1: Mild circumferential disc bulge. Facet joint arthropathy, bilateral facet effusions and ligame ntum flavum thickening. No significant canal or neural foraminal stenosis. An 8mm peripherally T2 hypointense, centrally T2 hyperintense structure just posterior to the right l anya is indeterminant and of doubtful clinical significance. The prevertebral soft tissues are within normal limits. IMPRESSION: 1. ACDF at C4-C5 with osseous fusion of the cervical spine from C4 through C7. No high-grade stenosi s or abnormal cord signal changes. 2. Degenerative changes of the lumbar spine without high-grade canal stenosis. Neural foraminal sten osis as described.
== END | disposition home or self-care (01) ==
LOC: RADMRIMAIN 12:58
PROVIDERS: ATTEND Orthopaedic Surgery
DX: M54.16 Radiculopathy, lumbar region (principal); M99.73 Connective tissue and disc stenosis of intervertebral foramina of lumbar region; Z98.1 Arthrodesis status
CPT/HCPCS: 72141; 72148

== ENCOUNTER → 2022-04-22 | Outpatient (CLI) | payer OTHER ==
--- NOTE | 2022-04-22 22:51 | MR ---
EXAMINATION TYPE: MR cspine/lspine wo con DATE OF EXAM: 04/22/2022 4:41 PM CLINICAL INDICATION:Female, 52 years old with history of M54.2 CERVICALGIA,M54.50 LOW BACK PAIN; COMPARISON: 12/11/2020 TECHNIQUE: Multi planar, multi sequence imaging was performed utilizing: T1-weighted, T2-weighted, a nd turbo inversion recovery imaging of the cervical and lumbar spine. MR contrast: IV Contrast: None. FINDINGS: CERVICAL: Alignment: The cervical vertebral bodies have preserved heights. Alignment is within normal limits gi nahun patient positioning. Bones: Postsurgical changes at C4-C7. High T2/T1 signal area in the T2 vertebral body most consistent vertebral body hemangioma. Multilevel degenerative disc disease is noted and most pronounced at the C4-C6 vertebral levels. Cord: The spinal cord is unremarkable with regards to their signal intensity and morphology. Discs: Multilevel disc desiccation is present. C2-C3: No significant disc pathology. The spinal canal is patent. No neural foraminal stenosis. C3-C4: A disc osteophyte complex is present with mild spinal canal stenosis. Bilateral facet and unc overtebral joint arthropathy are present with moderate to severe bilateral neural foraminal stenosis. C4-C5: No significant disc pathology. The spinal canal is patent. No neural foraminal stenosis. C5-C6: A eccentric right central disc osteophyte complex is present with mild spinal canal stenosis. Bilateral facet and uncovertebral joint arthropathy are present with moderate right and mild left ne ural foraminal stenosis. C6-C7: No significant disc pathology. The spinal canal is patent. Bilateral facet and uncovertebral joint arthropathy are present with moderate left and mild right neural foraminal stenosis. C7-T1: No significant disc pathology. The spinal canal is patent. No neural foraminal stenosis. Other: Mucosal thickening in the maxillary sinuses. LUMBAR: Alignment: The lumbar vertebral bodies have preserved heights and alignment. Cord: The conus medullaris and the distal spinal cord appear unremarkable with regards to their signa l intensity and morphology. Bones/Discs: High T1/high T2 L3 vertebral body hemangioma.. Multilevel degenerative disc disease is noted and most pronounced at the . L1-L2: No significant disc pathology. Spinal canal is patent. The neural foramen are patent. L2-L3: Disc bulging without significant spinal canal stenosis. There is facet joint arthropathy mild bilateral neural foraminal stenosis. L3-L4: Disc bulging without significant spinal canal stenosis. There is facet joint arthropathy mild bilateral neural foraminal stenosis. Right perineural cyst measuring 6 mm. L4-L5: Disc bulging without significant spinal canal stenosis. There is facet joint arthropathy mild bilateral neural foraminal stenosis. L5-S1: Disc bulge without significant spinal canal stenosis. The neural foramen are patent. Mild face t joint arthropathy. Other findings: None. IMPRESSION: 1. No evidence of significant spinal canal stenosis of the cervical spine. 2. Multilevel disc degeneration changes of the cervical spine worse at C3-C4 with moderate to severe bilateral neural foraminal stenosis. 3. No evidence of significant spinal canal neural foraminal stenosis of the lumbar spine.
== END | disposition home or self-care (01) ==
LOC: RADMRIMAIN 15:02
PROVIDERS: ATTEND Orthopaedic Surgery
DX: M48.02 Spinal stenosis, cervical region (principal); M50.31 Other cervical disc degeneration, high cervical region; M99.71 Connective tissue and disc stenosis of intervertebral foramina of cervical region; M51.36 Other intervertebral disc degeneration, lumbar region; M47.816 Spondylosis without myelopathy or radiculopathy, lumbar region
CPT/HCPCS: 72141; 72148

== ENCOUNTER → 2022-05-05 | Outpatient (CLI) | payer OTHER ==
[2022-05-05 14:50] VITALS: BP 127/80; PULSE 101; RESP 18; TEMP 98.7
--- NOTE | 2022-05-05 15:34 | P.PAINPG ---
PQRS Measure Charge Sheet Comment: A 52 yr old female with a history of severe and chronic low back pain secondary to lumbar DDD and spondylosis with facet arthropathy without myelopathy presents today for LBP. Pain level is currently at 7.5 /10 in intensity, constant, localized in the lower lumbar spine, dull/ twisting in character w shooting towards the BLEs. Pain is provoked by sitting/ standing for periods of 15 min, or lifting. Pain is alleviated with massage therapy x 2 as needed (last in Dec 2021), chiropractic treatments in 2020, heat, medications (Tramadol, Ibu, Naproxen), repositioning and rest. She participated in PT for her lumbar spine in 2018, 2019 which provoked pain. Interventional pain procedures completed include BL RFA L3-L5, [place] Patient is currently on Tramadol, Ibuprofen, Naproxen Patient denies any side effects of the medication(s), denies excessive drowsiness or sleepiness, denies suicidal ideation and reports that the current pain medication is helping to control the pain and improve activities of daily living. Patient denies any motor or sensory deficits. Patient denies any fever or night sweats, denies any change in the bowel movements or urination. Physical Examination: -Constitutional: Cooperative. Not in acute distress . - Neurologic: Cranial nerve II to XII intact. No focal neurological deficits. - Psychatric: Alert & oriented x 3. Matching mood & appropriate affect. Judgment and insight intact. - Musculoskeletal: Cervical spine: Muscle bulk/ tone/ strength in the bilateral upper extremities normal Vertebral body tenderness to palpation over Spurling test positive Distraction test positive Facet loading test positive Thoracic spine Muscle bulk / tone/ strength in the bilateral paraspinal muscles normal Vertebral body tender to palpation over Facet loading test positive Lumbar spine: Motor bulk/ tone/ strength lower extremities , thigh and legs : 5/5 Deep tendon reflexes : Normal Knee Jerk. Normal Ankle Jerk . Vertebral body tenderness to palpation over Lumbar Facet Loading Test positive TTP over BL L4-L5, L5-S1 facets Straight Leg Raise: positive at 30 degrees right side/ left side Gaenslen's Test positive Sacral spine : Severe tenderness over the Sacroiliac joint: right side / left side Range of motion: Flexion of the lumbar spine <60 degrees Range of motion: Extension of the lumbar spine <20 degrees Gaenslen's Test positive Ortiz test: positive right side / left side Thigh Thrust Test Sacral Thrust Test Imaging: MRI of the lumbar spine from 04/22/22 reviewed Assessment and plan: Chronic low back pain secondary to lumbar degenerative disc disease, spondylosis with facet arthropathy without myelopathy Recommendation of BL facet block of the medial branches L4-L5, L5-S1 #1. May need a series of injections, up until RFA, for optimal pain relief. Risks, benefits of procedure discussed and pt verbalized understanding. Admits to anticoagulant use or medical history of diabetes. Protocol for discontinuation/ continuation of medications alessia procedure discussed. All patient questions answered I have spent less than 30 minutes on patient care today. Dr Collins was available by phone for the evaluation of this patient. The time was used to review the medical records including relevant urine studies and Prescription history (MAPs), review of the available imaging, evaluation and examination of the patient, coordination of care with the medical staff and if applicable referring physicians, as well as creation of the medical record PQRS Narrative: Smoking Status Never smoker Narcotic Agreement Date Signed 09/13/16 Hx Alcohol Use (MH) No Home Medications: Ambulatory Orders traMADol HCL [Ultram] 50 mg PO Q6H PRN 01/12/16 Albuterol Inhaler [Ventolin Hfa Inhaler] 2 puff INHALATION RT-Q6H PRN 02/17/16 Rizatriptan Odt [Maxalt USER INTERFACE ENGINEER] 10 mg PO BID PRN 06/21/16 Ibuprofen [Motrin] 800 mg PO Q8HR PRN 08/16/16 Cetirizine HCl [Zyrtec] 10 mg PO DAILY 04/12/17 Beclomethasone Dip 80 Mcg/Puff [Qvar 80 mcg] 1 puff INHALATION RT-BID 01/30/18 Cyclobenzaprine [Flexeril] 10 mg PO HS 01/30/18 clonazePAM [KlonoPIN] 0.5 mg PO DAILY 05/15/18 Benzonatate [Tessalon Perles] 100 mg PO TID PRN 07/05/18 Levothyroxine Sodium [Synthroid] 75 mcg PO DAILY 07/05/18 Milnacipran HCl [Savella] 50 mg PO 05/05/22 Naproxen [Naprosyn] 500 mg PO 05/05/22 Ondansetron Odt [Zofran Odt] 4 mg PO Q8HR PRN 05/05/22 amLODIPine BES/OLMESARTAN MED [amLODIPine BES/OLMESARTAN MED 5-40 mg] 1 each PO 05/05/22 Controlled Substance Measures - Controlled Substance Measures Is patient prescribed a controlled substance at discharge?: No
== END ==
LOC: PNWHC3 12:57
PROVIDERS: ATTEND Specialist
DX: M47.816 Spondylosis without myelopathy or radiculopathy, lumbar region (principal); M51.36 Other intervertebral disc degeneration, lumbar region; Z91.048 Other nonmedicinal substance allergy status; Z88.8 Allergy status to other drugs, medicaments and biological substances; Z88.5 Allergy status to narcotic agent; Z88.6 Allergy status to analgesic agent
CPT/HCPCS: 99211

== ENCOUNTER → 2022-07-12 | Outpatient (CLI) | payer MEDICARE, OTHER ==
[2022-07-12 15:05] VITALS: BP 127/85; PULSE 114; RESP 18; TEMP 98.9
--- NOTE | 2022-07-12 15:05 | P.PAINPG ---
PQRS Measure Charge Sheet Comment: A 52 yr old female with a history of severe and chronic LBP secondary to lumbar DDD and spondylosis with facet arthropathy without myelopathy presents today for evaluation s/p BL L4-L5, L5-S1 facet block of the medial branch. Pt states she experienced 25% pain relief x 4 hrs s/p procedure. She also admits she's had LESIs which has provided little to no relief. Pain level is provoked at 8/10 in intensity, constant, localized in the lumbar spine, stabbing in character w shooting towards the BLEs. Pain is provoked by sitting/ standing for periods of 30 min or more. Pain is alleviated with PT yrs ago which provoked pain, massage therapy x 2 sessions in 2021, chiropractic treatments twice weekly x 6 wks in 2020, heat, medications, topicals, repositioning and rest. Interventional pain procedures completed include BL L4-L5, L5-S1 x1 Patient is currently on Cymbalta Tramadol Ibu Patient denies any side effects of the medication(s), denies excessive drowsiness or sleepiness, denies suicidal ideation and reports that the current pain medication is helping to control the pain and improve activities of daily living. Patient denies any motor or sensory deficits. Patient denies any fever or night sweats, denies any change in the bowel movements or urination. Physical Examination: -Constitutional: Cooperative. Not in acute distress . - Neurologic: Cranial nerve II to XII intact. No focal neurological deficits. - Psychatric: Alert & oriented x 3. Matching mood & appropriate affect. Judgment and insight intact. - Musculoskeletal: Cervical spine: Muscle bulk/ tone/ strength in the bilateral upper extremities normal Vertebral body tenderness to palpation over Spurling test positive Distraction test positive Facet loading test positive TTP Thoracic spine Muscle bulk / tone/ strength in the bilateral paraspinal muscles normal Vertebral body tender to palpation over Facet loading test positive TTP Lumbar spine: Motor bulk/ tone/ strength lower extremities , thigh and legs : 5/5 Deep tendon reflexes : Normal Knee Jerk. Normal Ankle Jerk . Vertebral body tenderness to palpation over L3, L4, L5 Lumbar Facet Loading Test positive Straight Leg Raise: positive at 30 degrees right side/ left side Gaenslen's Test positive Sacral spine : Severe tenderness over the Sacroiliac joint: right side / left side Range of motion: Flexion of the lumbar spine <60 degrees Range of motion: Extension of the lumbar spine <20 degrees Gaenslen's Test positive right side / left side Ortiz test: positive right side / left side Thigh Thrust Test positive right side / left side Sacral Thrust Test positive right side / left side Assessment and plan: Chronic LBP secondary to lumbar DDD, spondylosis with facet arthropathy without myelopathy Recommendation of SCS trial. Pt watched video for SCS placement and agreeable to follow up w [facility] for clearance for SCS trial. Risks, benefits of procedure discussed and pt verbalized understanding. Admits to anticoagulant use or medical history of diabetes. Protocol for discontinuation/ continuation of medications alessia procedure discussed. All questions answered. I have spent less than 30 minutes on patient care today. Dr Collins was available by phone for the evaluation of this patient. The time was used to review the medical records including relevant urine studies and Prescription history (MAPs), review of the available imaging, evaluation and examination of the patient, coordination of care with the medical staff and if applicable referring physicians, as well as creation of the medical record PQRS Narrative: Smoking Status Never smoker Narcotic Agreement Date Signed 09/13/16 Hx Alcohol Use (MH) No Home Medications: Ambulatory Orders traMADol HCL [Ultram] 50 mg PO Q6H PRN 01/12/16 Albuterol Inhaler [Ventolin Hfa Inhaler] 2 puff INHALATION RT-Q6H PRN 02/17/16 Rizatriptan Odt [Maxalt MUSEUM DIRECTOR] 10 mg PO BID PRN 06/21/16 Ibuprofen [Motrin] 800 mg PO Q8HR PRN 08/16/16 Cetirizine HCl [Zyrtec] 10 mg PO DAILY 04/12/17 Beclomethasone Dip 80 Mcg/Puff [Qvar 80 mcg] 1 puff INHALATION RT-BID 01/30/18 clonazePAM [KlonoPIN] 1 mg PO DAILY 05/15/18 Milnacipran HCl [Savella] 50 mg PO DAILY 05/05/22 Naproxen [Naprosyn] 500 mg PO DAILY PRN 05/05/22 Ondansetron Odt [Zofran Odt] 4 mg PO Q8HR PRN 05/05/22 amLODIPine BES/OLMESARTAN MED [amLODIPine BES/OLMESARTAN MED 5-40 mg] 1 each PO DAILY 05/05/22 Levothyroxine Sodium [Synthroid] 50 mcg PO DAILY 06/09/22 Controlled Substance Measures - Controlled Substance Measures Is patient prescribed a controlled substance at discharge?: No
== END ==
LOC: PNWHC3 13:39
PROVIDERS: ATTEND Specialist
DX: M47.26 Other spondylosis with radiculopathy, lumbar region (principal); G89.4 Chronic pain syndrome; Z91.048 Other nonmedicinal substance allergy status; Z88.5 Allergy status to narcotic agent; M46.1 Sacroiliitis, not elsewhere classified
CPT/HCPCS: 99211